=== PATIENT | female | born 1940 | race Caucasian/White ===

== ENCOUNTER 2016-04-26 08:29 | Day surgery (SDC) | payer MEDICARE, BC ==
[2016-04-21 12:08] VITALS: BMI 24.3
--- NOTE | 2016-04-25 12:18 | HP ---
DATE OF ADMISSION: 04/26/2016 Laura Hogan is a 76-year-old patient seen with left shoulder adhesive capsulitis after previously having undergone left shoulder arthroscopy. We discussed options. She elected to proceed with manipulation under anesthesia and steroid injection of left shoulder. Consent was obtained. Her past medical history is noncontributory. Past surgical history is left shoulder arthroscopy, cholecystectomy. Daily medication is Xanax as needed. Allergy is PENICILLIN. SOCIAL HISTORY: She smokes 1 pack of cigarettes daily. Physical evaluation of the left shoulder: Flexion is 70 degrees, abduction is 50 degrees, external rotation is 20 degrees with some weakness. Previous arthroscopic portal sites are well healed. Her distal neurovascular exam is intact. Left shoulder radiographs revealed a stable conversion to a flat anterior acromion and stable AC joint resection arthroplasty. IMPRESSION: 1. Left shoulder adhesive capsulitis. 2. History of left shoulder arthroscopic rotator cuff repair. PLAN: Left shoulder manipulation under anesthesia with steroid injection.
[~2016-04-26 08:29] MED LIST: CLINDAMYCIN 900 MG in DEXTROSE 5% IN WATER 50 ML IVPB ONE; HYDROmorphone 1 MG/ML 1 ML SYRINGE IVP PRN; LACTATED RINGERS 1,000 ML IV SCH; MIDAZOLAM 2 MG/2 ML VIAL IV PRN
[2016-04-26] MEDS ORDERED: LIDOCAINE 1% 20 ML VIAL (10MG/ML) FOR IV START INTRADERMA ONE (09:11)
[2016-04-26] MEDS ORDERED: KETOROLAC 30 MG/ML 1 ML VIAL ONE (09:58)
[2016-04-26] MEDS ORDERED: fentaNYL (PF) 50 MCG/ML 2 ML AMP ONE (09:58)
[2016-04-26] MEDS ORDERED: MIDAZOLAM 2 MG/2 ML VIAL ONE (09:58)
[2016-04-26] MEDS ORDERED: PROPOFOL 10 MG/ML 20 ML VIAL IV ONE (09:58)
[2016-04-26] MEDS ORDERED: methylPREDNISolone ACETATE 80 MG/ML 1 ML VIAL INTRAARTIC ONE (10:04)
[2016-04-26] MEDS ORDERED: BUPIVACAINE (PF) 0.25% 30 ML VIAL INTRAARTIC ONE (10:04)
--- NOTE | 2016-04-26 10:12 | P.OP ---
Date of Procedure: 04/26/16 Preoperative Diagnosis: Left shoulder adhesive capsulitis Postoperative Diagnosis: Left shoulder adhesive capsulitis Procedure(s) Performed: Manipulation under anesthesia left shoulder with steroid injection Anesthesia: MAC Surgeon: Aníbal Crook Estimated Blood Loss (ml): 0 Pathology: none sent Condition: stable Disposition: PACU Indications for Procedure: 76-year-old patient seen with left shoulder adhesive capsulitis after having previously undergone arthroscopic rotator cuff repair. I discussed treatment options and she elected to proceed with manipulation under anesthesia left shoulder with steroid injection. Description of Procedure: The patient was taken to a monitored area. The patient underwent IV sedation by the department of anesthesia. Once sufficient anesthesia was noted a manipulation was performed of the left shoulder. I achieved near full range of motion. The anterior aspect of the left shoulder was then prepped and draped in the normal sterile orthopedic fashion. A solution 1 mL Depo-Medrol and 3 mL quarter percent Marcaine were injected into the glenohumeral joint under sterile technique. The shoulder was again taken through range of motion. A sterile Band-Aid was applied. The patient was awakened having tolerated the procedure well.
[2016-04-26 10:18] VITALS: TEMP 97
[2016-04-26 11:02] VITALS: RESP 18
[2016-04-26 11:37] VITALS: BP 115/64; PULSE 70
== END 2016-04-26 11:42 | disposition home or self-care (01) ==
LOC: OR 08:29
PROVIDERS: ATTEND Orthopaedic Surgery
DX: M75.02 Adhesive capsulitis of left shoulder (principal); F41.9 Anxiety disorder, unspecified; Z79.899 Other long term (current) drug therapy; Z88.0 Allergy status to penicillin; F17.210 Nicotine dependence, cigarettes, uncomplicated
CPT/HCPCS: 23700; 20610; J2250; J1040; J3010; J1885; J2704

== ENCOUNTER → 2017-11-17 | Outpatient (CLI) | payer MEDICARE, BC ==
--- NOTE | 2017-11-17 07:17 | XR ---
EXAMINATION TYPE: XR chest 2V DATE OF EXAM: 11/17/2017 COMPARISON: NONE HISTORY: Left-sided chest and scapular pain. TECHNIQUE: Frontal and lateral views of the chest are obtained. FINDINGS: There is no focal air space opacity, pleural effusion, or pneumothorax seen. The cardiac silhouette size is within normal limits. The osseous structures are intact. Cholecystectomy clips a re noted on lateral view. IMPRESSION: No acute cardiopulmonary process.
--- NOTE | 2017-11-17 07:18 | XR ---
EXAMINATION TYPE: XR thoracic spine complete DATE OF EXAM: 11/17/2017 CLINICAL HISTORY: Mid back and posterior scapular pain TECHNIQUE: Frontal, lateral, and swimmer's view of thoracic spine are obtained. COMPARISON: None. FINDINGS: Thoracic spine show levoconvex scoliotic curvature centered in the upper thoracic spine wit hout evidence of acute fracture or dislocation. Vertebral body heights and disc space heights are pr eserved. Visualized ribs are unremarkable bilaterally. IMPRESSION: No acute fracture or dislocation is seen in the thoracic spine. Slight scoliotic curvatu re present.
== END ==
LOC: RADXRMAIN 06:44
PROVIDERS: ATTEND Family Medicine
DX: M54.6 Pain in thoracic spine (principal)
CPT/HCPCS: 71046; 72072

== ENCOUNTER → 2018-07-24 | Outpatient (CLI) | payer MEDICARE, BC ==
[2018-07-24 23:41] LABS: Vitamin D 25 Hydroxy 9.3 ng/mL (30.0-100.0)
== END ==
LOC: LABWHC1 15:27
PROVIDERS: ATTEND Psychiatry & Neurology Neurology
DX: R25.1 Tremor, unspecified (principal); R26.9 Unspecified abnormalities of gait and mobility
CPT/HCPCS: 36415; 82306; 82607

== ENCOUNTER → 2018-07-28 | Outpatient (CLI) | payer MEDICARE, BC ==
--- NOTE | 2018-07-28 21:31 | MR ---
EXAMINATION TYPE: MR brain wo con DATE OF EXAM: 07/28/2018 COMPARISON: None HISTORY: Tremors CONTRAST: Performed utilizing 0 mL intravenous Gadavist gadolinium contrast. TECHNIQUE: Multiplanar, multiecho imaging on a 3.0 Concha magnet is performed through the brain. Stud y is performed within 24 hours of arrival to the hospital. The craniovertebral junction is normal. The pituitary is normal. Diffusion-weighted imaging is performed. No abnormal hyperintensity is present to suggest an acute i ntracranial infarct or acute ischemic change. There are multiple scattered punctate white matter changes through the periventricular and subcortica l white matter. Small amount may be within the brainstem near the right cerebellar peduncle. Findings are nonspecific but can be related to microvascular ischemic changes. Differential diagnosis would i nclude vasculitis multiple sclerosis Lyme disease among other etiologies. Ventricles and sulci are mildly prominent for the patient age. IMPRESSIONS: 1. Multiple bilateral scattered subcortical and deep white matter changes
== END | disposition home or self-care (01) ==
LOC: RADMRIMAIN 19:14
PROVIDERS: ATTEND Psychiatry & Neurology Neurology
DX: R90.89 Other abnormal findings on diagnostic imaging of central nervous system (principal); G20 Parkinson's disease; R26.9 Unspecified abnormalities of gait and mobility
CPT/HCPCS: 70551

== ENCOUNTER → 2018-11-20 | Outpatient (CLI) | payer MEDICARE, BC | END | disposition home or self-care (01) | LOC: LABWHC1 16:01 | PROVIDERS: ATTEND Psychiatry & Neurology Neurology | DX: E55.9 Vitamin D deficiency, unspecified (principal) | CPT/HCPCS: 36415; 82306 ==

== ENCOUNTER → 2019-11-22 | Outpatient (CLI) | payer MEDICARE, BC | END | disposition home or self-care (01) | LOC: LABWHC1 08:15 | PROVIDERS: ATTEND Psychiatry & Neurology Neurology | DX: G40.909 Epilepsy, unspecified, not intractable, without status epilepticus (principal) | CPT/HCPCS: 36415; 80177 ==

== ENCOUNTER → 2019-11-30 | Outpatient (CLI) | payer MEDICARE, BC ==
[2019-11-30 10:25] LABS: HCT 41.8 % (34.0-46.0); HGB 14.1 gm/dL (11.4-16.0); MCH 32.3 pg (25.0-35.0); MCHC 33.6 g/dL (31.0-37.0); Platelet Count 146 k/uL (150-450); RBC 4.36 m/uL (3.80-5.40); RDW 12.6 % (11.5-15.5); WBC 8.4 k/uL (3.8-10.6)
== END | disposition home or self-care (01) ==
LOC: LABPAT 09:16
PROVIDERS: ATTEND Internal Medicine Clinical Cardiac Electrophysiology
DX: Z01.818 Encounter for other preprocedural examination (principal); R55 Syncope and collapse
CPT/HCPCS: 36415; 82565; 83735; 84520; 85027

== ENCOUNTER 2019-12-03 08:25 | Day surgery (SDC) | payer MEDICARE, BC ==
[2019-11-30 11:18] VITALS: BMI 20.9
[~2019-12-03 08:25] MED LIST changes: -CLINDAMYCIN 900 MG in DEXTROSE 5% IN WATER 50 ML IVPB ONE; -HYDROmorphone 1 MG/ML 1 ML SYRINGE IVP PRN; -LACTATED RINGERS 1,000 ML IV SCH; -MIDAZOLAM 2 MG/2 ML VIAL IV PRN; +SODIUM CHLORIDE 0.9% 1,000 ML IV SCH
[2019-12-03 09:39] VITALS: BP 141/62; PULSE 72; RESP 16; TEMP 98.1
--- NOTE | 2019-12-03 17:11 | P.PCN ---
Preoperative Diagnosis: Diagnosis Syncope, recurrent Twelve-lead ECG shows baseline artifact. Patient has Parkinson's and is very shaky no daily prolongation. No delta waves narrow QRS occasional PVCs Tilt table test per protocol Baseline heart rate 69 beats a minute Baseline blood pressure 141/71 mmHg With upright tilting there was a gradual progressive drop in the patient's blood pressure. The lowest blood pressure recorded was 97/58 mmHg he did commensurate with this is a mild increase in the heart rates to the low 100s. Line patient a very difficult time standing and to was the in complaining of being very tired and fatigued When she was laid supine her blood pressure improved to 139/60 mmHg and a heart rate decreased to 84 mmHg Impression No definite ECG abnormalities noted no conduction system abnormalities noted Orthostatic hypotension syndrome/mild dysautonomia
== END 2019-12-03 11:07 | disposition home or self-care (01) ==
LOC: CATHEP 08:25
PROVIDERS: ATTEND Internal Medicine Clinical Cardiac Electrophysiology
DX: I95.1 Orthostatic hypotension (principal); G20 Parkinson's disease; R06.00 Dyspnea, unspecified; I77.89 Other specified disorders of arteries and arterioles; R60.0 Localized edema; I10 Essential (primary) hypertension; F17.210 Nicotine dependence, cigarettes, uncomplicated; Z88.0 Allergy status to penicillin; Z79.899 Other long term (current) drug therapy; Z79.82 Long term (current) use of aspirin; Z98.890 Other specified postprocedural states; Z87.39 Personal history of other diseases of the musculoskeletal system and connective tissue
CPT/HCPCS: 93660

== ENCOUNTER 2020-01-28 14:16 | Emergency (ER) | payer MEDICARE, BC ==
[2020-01-28 14:25] VITALS: RESP 18; TEMP 97.7
[2020-01-28] MEDS ORDERED: SODIUM CHLORIDE 0.9% 500 ML 500 ML IV STA (15:00)
[2020-01-28 15:47] LABS: Basophils # (A) 0.1 k/uL (0-0.2); Basophils % (A) 1 %; Eosinophils # (A) 0.3 k/uL (0-0.7); Eosinophils % (A) 4 %; HCT 38.8 % (34.0-46.0); Lymphocytes # (A) 1.7 k/uL (1.0-4.8); Lymphocytes % (A) 21 %; MCH 32.2 pg (25.0-35.0); MCHC 33.6 g/dL (31.0-37.0); MCV 95.9 fL (80.0-100.0); Mean Platelet Volume 9.1; Monocytes # (A) 0.4 k/uL (0-1.0); Monocytes % (A) 5 %; Neutrophils # (A) 5.5 k/uL (1.3-7.7); Neutrophils % (A) 68 %; Platelet Count 147 k/uL (150-450); RBC 4.04 m/uL (3.80-5.40); RDW 12.9 % (11.5-15.5); WBC 8.1 k/uL (3.8-10.6)
--- NOTE | 2020-01-28 15:51 | ED ---
Weakness HPI - General Chief complaint: Weakness Stated complaint: Weakness Time Seen by Provider: 01/28/20 14:51 Source: patient, family Mode of arrival: wheelchair Limitations: no limitations - History of Present Illness Initial comments: Patient is a 79-year-old female, history of Parkinson's disease, presenting to emergency Department with complaints of weakness, multiple falls for the past 2 weeks. She states she was evaluated by cardiology about 2 weeks ago, including a tilt table test, EKG, echo which all showed no abnormal findings. She has also had low blood pressure, patient was started on 10 mg of midodrine, TID. I did speak with the patient's daughter who states that patient does live by herself, however they have somebody at the house all the time because patient is becoming weaker, not able to stand up by herself or sit on the toilet without assistance. She tends to sleep a lot during the day, does not eat a whole lot. Patient states she has been trying to drink some more water. Daughter states she had a low-grade temperature yesterday but no other fevers. There has been no vomiting, no diarrhea. She has no urinary complaints, she's been having regular bowel movements. Patient denies any chest pain, shortness of breath, cough. She denies any abdominal pain. She states she has had falls in the past week or 2 where she has hit her head, there has been no loss of consciousness. Patient is not on blood thinners. Patient has no further complaints at this time. Upon arrival to the ER, her vital signs are stable. - Related Data Home Medications Medication Instructions Recorded Confirmed Aspirin [Adult Low Dose Aspirin EC] 81 mg PO DAILY 11/30/19 01/28/20 Carbidopa-Levodopa ER 50-200Mg 1 tab PO TID@0800,1600,2300 11/30/19 01/28/20 [Sinemet ER 50-200] amantadine HCL [Amantadine] 100 mg PO BID@799,199911/30/19 01/28/20 levETIRAcetam [Keppra] 500 mg PO BID@799,199911/30/19 01/28/20 Cholecalciferol (Vitamin D3) 250 mcg PO DAILY 01/28/20 01/28/20 [Vitamin D3] Midodrine HCl [ProAmatine] 10 mg PO TID@0800,1600,2300 01/28/20 01/28/20 Previous Rx's Medication Instructions Recorded Cephalexin [Keflex] 500 mg PO BID 5 Days #10 cap 01/28/20 Allergies Allergy/AdvReac Type Severity Reaction Status Date / Time Penicillins Allergy Rash/Hives Verified 01/28/20 17:50 Review of Systems ROS Statement: Those systems with pertinent positive or pertinent negative responses have been documented in the HPI. ROS Other: All systems not noted in ROS Statement are negative. 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 Past Anesthesia/Blood Transfusion Reactions: No Reported Reaction Additional Past Anesthesia/Blood Transfusion Reaction / Comment(s): no hx blood transfusion Past Psychological History: Anxiety Smoking Status: Former smoker Past Alcohol Use History: None Reported Past Drug Use History: None Reported - Past Family History Brother(s) Family Medical History: Cancer Sister(s) Family Medical History: Cancer Daughter(s) Family Medical History: Cancer Mother Family Medical History: No Reported History Father Family Medical History: Myocardial Infarction (PA) General Exam - General Exam Comments Initial Comments: GENERAL: Patient is well-developed and well-nourished. Patient is nontoxic and in no acute distress. HEAD: Atraumatic, normocephalic. EYES: Pupils equal round and reactive to light, extraocular movements intact, sclera anicteric, conjunctiva are normal. Eyelids were unremarkable. ENT: TMs normal, nares patent, oropharynx clear without exudates. Moist mucous membranes. NECK: Normal range of motion, supple without lymphadenopathy or JVD. LUNGS: Unlabored respirations. Breath sounds clear to auscultation bilaterally and equal. No wheezes rales or rhonchi. HEART: Regular rate and rhythm without murmurs, rubs or gallops. ABDOMEN: Soft, nontender, normoactive bowel sounds. No guarding, no rebound. No masses appreciated. : Deferred MUSCULOSKELETAL: Normal extremities with adequate strength and normal range of motion, no pitting or edema. No clubbing or cyanosis. NEUROLOGICAL: Patient is alert and oriented x 3. Motor and sensory are also intact. Cranial nerves II through XII grossly intact. Symmetrical smile. Normal speech, normal gait. History of Parkinson's PSYCH: Normal mood, normal affect. SKIN: Warm, Dry, normal turgor, no rashes or lesions noted. Limitations: no limitations Course Vital Signs 01/28/20 01/28/20 01/28/20 14:20 14:31 15:00 Temperature 97.7 F Pulse Rate 91 Respiratory 18 Rate Blood Pressure 123/78 155/114 O2 Sat by Pulse 94 L 93 L 94 L Oximetry 01/28/20 01/28/20 01/28/20 15:30 16:00 16:30 Temperature Pulse Rate 85 88 Respiratory 18 Rate Blood Pressure 139/73 129/43 127/89 O2 Sat by Pulse 95 96 Oximetry 01/28/20 01/28/20 01/28/20 17:00 17:30 18:00 Temperature Pulse Rate 71 Respiratory 18 Rate Blood Pressure 138/77 125/101 152/85 O2 Sat by Pulse 95 Oximetry EKG Findings - EKG Comments: EKG Findings:: Patient has history of Parkinson's so EKG is hard to read, appears normal sinus rhythm, no signs of acute ischemia, ventricular rate 66, OH 162, QTC 424. Medical Decision Making - Medical Decision Making Patient is a 79-year-old female with history of Parkinson's presenting for weakness, multiple falls in the past 2 weeks. She had a recent full cardiac workup with no acute findings. She was recently started on medication for hypotension. Her vital signs are stable here. Her exam shows no acute process at this time. Labs show a normal white count, troponin is normal, BNP is normal, lactic acid is 1.7. Urine does show 57 wbc's, large amount leukocyte Estrace. Covid is not detected. Chest x-ray and CT of the brain also show no acute process. Patient was given some fluids and a dose of Rocephin for the UTI. I did discuss these findings with the patient I did recommend admission for dehydration and UTI however patient refused. We also did speak to her PCP, Dr. Rudd who is okay with patient going home and will follow-up in the next 1-2 days. Patient states she will follow-up. She is stable for discharge. I will continue her on Keflex for the UTI. I also spoke with patient's a daughter who is okay with this plan. Case discussed with Dr. Gonzalez. - Lab Data Result diagrams: 01/28/20 15:23 01/28/20 15: Lab Results 01/28/20 01/28/20 01/28/20 Range/Units 15:23 15: 15:23 WBC 8.1 (3.8-10.6) k/uL RBC 4.04 (3.80-5.40) m/uL Hgb 13.0 (11.4-16.0) gm/dL Hct 38.8 (34.0-46.0) % MCV 95.9 (80.0-100.0) fL MCH 32.2 (25.0-35.0) pg MCHC 33.6 (31.0-37.0) g/dL RDW 12.9 (11.5-15.5) % Plt Count 147 L (150-450) k/uL MPV 9.1 Neutrophils % 68 % Lymphocytes % 21 % Monocytes % 5 % Eosinophils % 4 % Basophils % 1 % Neutrophils # 5.5 (1.3-7.7) k/uL Lymphocytes # 1.7 (1.0-4.8) k/uL Monocytes # 0.4 (0-1.0) k/uL Eosinophils # 0.3 (0-0.7) k/uL Basophils # 0.1 (0-0.2) k/uL PT 9.8 (9.0-12.0) sec INR 0.9 (<1.2) APTT 21.7 L (22.0-30.0) sec Sodium (137-145) mmol/L Potassium (3.5-5.1) mmol/L Chloride (98-107) mmol/L Carbon Dioxide (22-30) mmol/L Anion Gap mmol/L BUN (7-17) mg/dL Creatinine (0.52-1.04) mg/dL Est GFR (CKD-EPI)AfAm (>60 ml/min/1.73 sqM) Est GFR (CKD-EPI)NonAf (>60 ml/min/1.73 sqM) Glucose (74-99) mg/dL Plasma Lactic Acid Nikolay (0.7-2.0) mmol/L Calcium (8.4-10.2) mg/dL Magnesium (1.6-2.3) mg/dL Total Bilirubin (0.2-1.3) mg/dL AST (14-36) U/L ALT (4-34) U/L Alkaline Phosphatase (38-126) U/L Troponin I (0.000-0.034) ng/mL NT-Pro-B Natriuret Pep pg/mL Total Protein (6.3-8.2) g/dL Albumin (3.5-5.0) g/dL Urine Color Yellow Urine Appearance Clear (Clear) Urine pH 6.0 (5.0-8.0) Ur Specific [place] 1.015 (1.001-1.035) Urine Protein Trace H (Negative) Urine Glucose (UA) Negative (Negative) Urine Ketones Negative (Negative) Urine Blood Negative (Negative) Urine Nitrite Negative (Negative) Urine Bilirubin Negative (Negative) Urine Urobilinogen <2.0 (<2.0) mg/dL Ur Leukocyte Esterase Large H (Negative) Urine RBC 2 (0-5) /hpf Urine WBC 57 H (0-5) /hpf Ur Squamous Epith Cells 1 (0-4) /hpf Urine Mucus Few H (None) /hpf Coronavirus (PCR) (Not Detectd) 01/28/20 01/28/20 01/28/20 Range/Units 15:23 15:23 15:23 WBC (3.8-10.6) k/uL RBC (3.80-5.40) m/uL Hgb (11.4-16.0) gm/dL Hct (34.0-46.0) % MCV (80.0-100.0) fL MCH (25.0-35.0) pg MCHC (31.0-37.0) g/dL RDW (11.5-15.5) % Plt Count (150-450) k/uL MPV Neutrophils % % Lymphocytes % % Monocytes % % Eosinophils % % Basophils % % Neutrophils # (1.3-7.7) k/uL Lymphocytes # (1.0-4.8) k/uL Monocytes # (0-1.0) k/uL Eosinophils # (0-0.7) k/uL Basophils # (0-0.2) k/uL PT (9.0-12.0) sec INR (<1.2) APTT (22.0-30.0) sec Sodium 142 (137-145) mmol/L Potassium 3.9 (3.5-5.1) mmol/L Chloride 105 (98-107) mmol/L Carbon Dioxide 27 (22-30) mmol/L Anion Gap 10 mmol/L BUN 21 H (7-17) mg/dL Creatinine 0.81 (0.52-1.04) mg/dL Est GFR (CKD-EPI)AfAm 81 (>60 ml/min/1.73 sqM) Est GFR (CKD-EPI)NonAf 70 (>60 ml/min/1.73 sqM) Glucose 94 (74-99) mg/dL Plasma Lactic Acid Nikolay 1.7 (0.7-2.0) mmol/L Calcium 9.5 (8.4-10.2) mg/dL Magnesium 2.0 (1.6-2.3) mg/dL Total Bilirubin 0.6 (0.2-1.3) mg/dL AST 16 (14-36) U/L ALT 7 (4-34) U/L Alkaline Phosphatase 88 (38-126) U/L Troponin I <0.012 (0.000-0.034) ng/mL NT-Pro-B Natriuret Pep pg/mL Total Protein 7.0 (6.3-8.2) g/dL Albumin 4.3 (3.5-5.0) g/dL Urine Color Urine Appearance (Clear) Urine pH (5.0-8.0) Ur Specific [place] (1.001-1.035) Urine Protein (Negative) Urine Glucose (UA) (Negative) Urine Ketones (Negative) Urine Blood (Negative) Urine Nitrite (Negative) Urine Bilirubin (Negative) Urine Urobilinogen (<2.0) mg/dL Ur Leukocyte Esterase (Negative) Urine RBC (0-5) /hpf Urine WBC (0-5) /hpf Ur Squamous Epith Cells (0-4) /hpf Urine Mucus (None) /hpf Coronavirus (PCR) (Not Detectd) 01/28/20 01/28/20 Range/Units 15:23 15:23 WBC (3.8-10.6) k/uL RBC (3.80-5.40) m/uL Hgb (11.4-16.0) gm/dL Hct (34.0-46.0) % MCV (80.0-100.0) fL MCH (25.0-35.0) pg MCHC (31.0-37.0) g/dL RDW (11.5-15.5) % Plt Count (150-450) k/uL MPV Neutrophils % % Lymphocytes % % Monocytes % % Eosinophils % % Basophils % % Neutrophils # (1.3-7.7) k/uL Lymphocytes # (1.0-4.8) k/uL Monocytes # (0-1.0) k/uL Eosinophils # (0-0.7) k/uL Basophils # (0-0.2) k/uL PT (9.0-12.0) sec INR (<1.2) APTT (22.0-30.0) sec Sodium (137-145) mmol/L Potassium (3.5-5.1) mmol/L Chloride (98-107) mmol/L Carbon Dioxide (22-30) mmol/L Anion Gap mmol/L BUN (7-17) mg/dL Creatinine (0.52-1.04) mg/dL Est GFR (CKD-EPI)AfAm (>60 ml/min/1.73 sqM) Est GFR (CKD-EPI)NonAf (>60 ml/min/1.73 sqM) Glucose (74-99) mg/dL Plasma Lactic Acid Nikolay (0.7-2.0) mmol/L Calcium (8.4-10.2) mg/dL Magnesium (1.6-2.3) mg/dL Total Bilirubin (0.2-1.3) mg/dL AST (14-36) U/L ALT (4-34) U/L Alkaline Phosphatase (38-126) U/L Troponin I (0.000-0.034) ng/mL NT-Pro-B Natriuret Pep 486 pg/mL Total Protein (6.3-8.2) g/dL Albumin (3.5-5.0) g/dL Urine Color Urine Appearance (Clear) Urine pH (5.0-8.0) Ur Specific [place] (1.001-1.035) Urine Protein (Negative) Urine Glucose (UA) (Negative) Urine Ketones (Negative) Urine Blood (Negative) Urine Nitrite (Negative) Urine Bilirubin (Negative) Urine Urobilinogen (<2.0) mg/dL Ur Leukocyte Esterase (Negative) Urine RBC (0-5) /hpf Urine WBC (0-5) /hpf Ur Squamous Epith Cells (0-4) /hpf Urine Mucus (None) /hpf Coronavirus (PCR) Not Detected (Not Detectd) Disposition Clinical Impression: UTI (urinary tract infection), Weakness Disposition: HOME SELF-CARE Condition: Stable Instructions (If sedation given, give patient instructions): Urinary Tract Infection in Women (ED) Additional Instructions: Please return to the Emergency Department if symptoms worsen or any other concerns. Complete antibiotic as prescribed. Follow-up with Dr. Rudd in 1-2 days as discussed Prescriptions: Cephalexin [Keflex] 500 mg PO BID 5 Days #10 cap Is patient prescribed a controlled substance at d/c from ED?: No Referrals: Rick Rudd DO [Primary Care Provider] - 1-2 days
[2020-01-28 15:55] LABS: Albumin 4.3 g/dL (3.5-5.0); Calcium 9.5 mg/dL (8.4-10.2); Potassium 3.9 mmol/L (3.5-5.1); Total Bilirubin 0.6 mg/dL (0.2-1.3)
--- NOTE | 2020-01-28 16:03 | XR ---
EXAMINATION TYPE: XR chest 2V DATE OF EXAM: 01/28/2020 COMPARISON: 11/17/2017 INDICATION: Weakness. Falls TECHNIQUE: Frontal and lateral views of the chest are obtained. FINDINGS: The heart size is normal. The pulmonary vasculature is normal. The lungs are clear. IMPRESSION: 1. No acute pulmonary process.
[2020-01-28 16:10] LABS: INR 0.9 (<1.2); Prothrombin Time 9.8 sec (9.0-12.0)
[2020-01-28 16:15] LABS: Partial Thromboplastin Time 21.7 sec (22.0-30.0)
--- NOTE | 2020-01-28 16:18 | CT ---
EXAMINATION TYPE: CT brain wo con DATE OF EXAM: 01/28/2020 COMPARISON: MRI 07/28/2018 HISTORY: 79-year-old female weak dizziness, Parkinson's TECHNIQUE: Examination was done in axial plane without intravenous contrast. Coronal and sagittal r econstructions performed. CT DLP: 1098.4 mGycm Automated exposure control for dose reduction was used. FINDINGS: There is no evidence of acute intracranial hemorrhage, acute ischemic changes, mass, mass-effect, or extra-axial fluid collection. There is no effacement of cerebral sulci or basal subarachnoid cister ns. There is no hydrocephalus. There is no midline shift. Jordan-white matter distinction is preserv ed. Mild to moderate patchy white matter hypodensities in both cerebral hemispheres. Paranasal sinuses and mastoid air cells are well pneumatized. Orbits and globes are intact. IMPRESSION: No acute intracranial abnormality seen. Mild to moderate patchy burden of chronic small vessel ischem ic disease.
[2020-01-28 17:02] LABS: Appearance,Urine Clear (Clear); Bilirubin,Urine Negative (Negative); Blood,Urine Negative (Negative); Color,Urine Yellow; Glucose,Urine (UA) Negative (Negative); Ketones,Urine Negative (Negative); Leukocyte Esterase,Urine Large (Negative); Mucus,Urine Few /hpf; Nitrite,Urine Negative (Negative); Protein,Urine Trace (Negative); RBC,Urine 2 /hpf (0-5); Specific Gravity,Urine 1.015 (1.001-1.035); Squamous Epithelial Cell,Urine 1 /hpf (0-4); Urobilinogen,Urine <2.0 mg/dL (<2.0); WBC,Urine 57 /hpf (0-5)
[2020-01-28] MEDS ORDERED: cefTRIAXone IN SWFI 1,000 MG/10 ML SYRINGE IVP STA (17:52)
[2020-01-28 18:02] VITALS: BP 152/85; PULSE 71
== END 2020-01-28 18:26 | disposition home or self-care (01) ==
LOC: EC 14:16
DX: N39.0 Urinary tract infection, site not specified (principal); I95.9 Hypotension, unspecified; E86.0 Dehydration; G20 Parkinson's disease; R29.6 Repeated falls; Z79.899 Other long term (current) drug therapy; Z79.82 Long term (current) use of aspirin; Z88.0 Allergy status to penicillin; Z87.891 Personal history of nicotine dependence; Z20.828 Contact with and (suspected) exposure to other viral communicable diseases
CPT/HCPCS: 36415; 93005; 83880; 80053; 83605; 83735; 84484; 85025; 85610; 85730; 81001; 87086; 87635; 71046; 70450; 99285; 96374; 96361; J0696

== ENCOUNTER 2020-02-09 11:35 | Emergency (ER) | payer MEDICARE, BC ==
[2020-02-09 11:44] VITALS: RESP 16
[2020-02-09] MEDS ORDERED: SODIUM CHLORIDE 0.9% 500 ML 500 ML IV STA (12:10)
--- NOTE | 2020-02-09 12:38 | ED ---
General Adult HPI - General Chief complaint: Weakness Stated complaint: general weakness Time Seen by Provider: 02/09/20 12:08 Source: patient, RN notes reviewed, old records reviewed Mode of arrival: EMS Limitations: no limitations - History of Present Illness Initial comments: 79-year-old female presenting for increased generalized weakness. Patient recently treated for urinary tract infection, completed a 5 day course of antibiotics. She's had increased weakness despite treatment. She's had poor oral intake. No vomiting. She has had diarrhea for the past one or 2 days. She denies chest pain or dyspnea. Denies URI symptoms. Denies fever. Denies abdominal pain. Denies focal numbness or weakness. - Related Data Home Medications Medication Instructions Recorded Confirmed Aspirin [Adult Low Dose Aspirin EC] 81 mg PO DAILY 11/30/19 01/28/20 Carbidopa-Levodopa ER 50-200Mg 1 tab PO TID@0800,1600,2300 11/30/19 01/28/20 [Sinemet ER 50-200] amantadine HCL [Amantadine] 100 mg PO BID@0800,199911/30/19 01/28/20 levETIRAcetam [Keppra] 500 mg PO BID@0800,199911/30/19 01/28/20 Cholecalciferol (Vitamin D3) 250 mcg PO DAILY 01/28/20 01/28/20 [Vitamin D3] Midodrine HCl [ProAmatine] 10 mg PO TID@0800,1600,2300 01/28/20 01/28/20 Previous Rx's Medication Instructions Recorded Cephalexin [Keflex] 500 mg PO BID 5 Days #10 cap 01/28/20 Allergies Allergy/AdvReac Type Severity Reaction Status Date / Time Penicillins Allergy Rash/Hives Verified 02/09/20 11:44 Review of Systems ROS Statement: Those systems with pertinent positive or pertinent negative responses have been documented in the HPI. ROS Other: All systems not noted in ROS Statement are negative. 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 Past Anesthesia/Blood Transfusion Reactions: No Reported Reaction Additional Past Anesthesia/Blood Transfusion Reaction / Comment(s): no hx blood transfusion Past Psychological History: Anxiety Smoking Status: Former smoker Past Alcohol Use History: None Reported Past Drug Use History: None Reported - Past Family History Brother(s) Family Medical History: Cancer Sister(s) Family Medical History: Cancer Daughter(s) Family Medical History: Cancer Mother Family Medical History: No Reported History Father Family Medical History: Myocardial Infarction ([place]) General Exam Limitations: no limitations General appearance: alert, in no apparent distress Head exam: Present: atraumatic, normocephalic Eye exam: Present: normal appearance, PERRL ENT exam: Present: mucous membranes dry Neck exam: Present: normal inspection. Absent: tenderness, meningismus Respiratory exam: Present: normal lung sounds bilaterally. Absent: respiratory distress, wheezes, rales Cardiovascular Exam: Present: regular rate, normal rhythm GI/Abdominal exam: Present: soft. Absent: distended, tenderness, guarding Extremities exam: Present: normal inspection, normal capillary refill. Absent: pedal edema, calf tenderness Neurological exam: Present: alert, oriented X3, CN II-XII intact, other (Resting tremor). Absent: motor sensory deficit Psychiatric exam: Present: normal affect, normal mood Skin exam: Present: warm, dry, intact. Absent: cyanosis, diaphoretic Course Vital Signs 02/09/20 11:42 Temperature 97.9 F Pulse Rate 86 Respiratory 16 Rate Blood Pressure 169/75 O2 Sat by Pulse 95 Oximetry EKG Findings - EKG Comments: EKG Findings:: EKG: Normal sinus rhythm, no ST segment elevation, artifact secondary to tremor, rate of 79, [place] interval 168, QRS duration 72, QTC 438 Medical Decision Making - Medical Decision Making 79-year-old female with generalized weakness, poor appetite. Patient overall well-appearing with stable vitals. She has normal CBC, normal CMP, negative urinalysis. Negative chest x-ray, no focal pneumonia or acute findings. Patient's given IV hydration, she is feeling better with hydration. I did offer admission for continuous IV hydration and reevaluation. Versus home with close outpatient follow-up. Patient and her family prefer outpatient follow-up at this time. They will encourage hydration, as well as increased by mouth intake. They will return the emergency department with worsening or changing symptoms. - Lab Data Result diagrams: 02/09/20 12:51 02/09/20 12:51 Lab Results 02/09/20 02/09/20 02/09/20 Range/Units 12:51 12:51 12:51 WBC 7.8 (3.8-10.6) k/uL RBC 3.96 (3.80-5.40) m/uL Hgb 12.8 (11.4-16.0) gm/dL Hct 37.3 (34.0-46.0) % MCV 94.2 (80.0-100.0) fL MCH 32.3 (25.0-35.0) pg MCHC 34.3 (31.0-37.0) g/dL RDW 12.8 (11.5-15.5) % Plt Count 161 (150-450) k/uL MPV 8.6 Neutrophils % 65 % Lymphocytes % 23 % Monocytes % 4 % Eosinophils % 5 % Basophils % 1 % Neutrophils # 5.1 (1.3-7.7) k/uL Lymphocytes # 1.8 (1.0-4.8) k/uL Monocytes # 0.3 (0-1.0) k/uL Eosinophils # 0.4 (0-0.7) k/uL Basophils # 0.1 (0-0.2) k/uL PT 9.9 (9.0-12.0) sec INR 0.9 (<1.2) APTT 22.5 (22.0-30.0) sec Sodium 140 (137-145) mmol/L Potassium 4.3 (3.5-5.1) mmol/L Chloride 104 (98-107) mmol/L Carbon Dioxide 30 (22-30) mmol/L Anion Gap 6 mmol/L BUN 21 H (7-17) mg/dL Creatinine 0.80 (0.52-1.04) mg/dL Est GFR (CKD-EPI)AfAm 82 (>60 ml/min/1.73 sqM) Est GFR (CKD-EPI)NonAf 71 (>60 ml/min/1.73 sqM) Glucose 96 (74-99) mg/dL Plasma Lactic Acid Nikolay (0.7-2.0) mmol/L Calcium 9.3 (8.4-10.2) mg/dL Total Bilirubin 0.7 (0.2-1.3) mg/dL AST 14 (14-36) U/L ALT <6 (4-34) U/L Alkaline Phosphatase 111 (38-126) U/L Total Protein 6.7 (6.3-8.2) g/dL Albumin 4.1 (3.5-5.0) g/dL Urine Color Urine Appearance (Clear) Urine pH (5.0-8.0) Ur Specific [place] (1.001-1.035) Urine Protein (Negative) Urine Glucose (UA) (Negative) Urine Ketones (Negative) Urine Blood (Negative) Urine Nitrite (Negative) Urine Bilirubin (Negative) Urine Urobilinogen (<2.0) mg/dL Ur Leukocyte Esterase (Negative) Urine RBC (0-5) /hpf Urine WBC (0-5) /hpf Ur Squamous Epith Cells (0-4) /hpf Urine Mucus (None) /hpf 02/09/20 02/09/20 Range/Units 12:51 13:27 WBC (3.8-10.6) k/uL RBC (3.80-5.40) m/uL Hgb (11.4-16.0) gm/dL Hct (34.0-46.0) % MCV (80.0-100.0) fL MCH (25.0-35.0) pg MCHC (31.0-37.0) g/dL RDW (11.5-15.5) % Plt Count (150-450) k/uL MPV Neutrophils % % Lymphocytes % % Monocytes % % Eosinophils % % Basophils % % Neutrophils # (1.3-7.7) k/uL Lymphocytes # (1.0-4.8) k/uL Monocytes # (0-1.0) k/uL Eosinophils # (0-0.7) k/uL Basophils # (0-0.2) k/uL PT (9.0-12.0) sec INR (<1.2) APTT (22.0-30.0) sec Sodium (137-145) mmol/L Potassium (3.5-5.1) mmol/L Chloride (98-107) mmol/L Carbon Dioxide (22-30) mmol/L Anion Gap mmol/L BUN (7-17) mg/dL Creatinine (0.52-1.04) mg/dL Est GFR (CKD-EPI)AfAm (>60 ml/min/1.73 sqM) Est GFR (CKD-EPI)NonAf (>60 ml/min/1.73 sqM) Glucose (74-99) mg/dL Plasma Lactic Acid Nikolay 0.8 (0.7-2.0) mmol/L Calcium (8.4-10.2) mg/dL Total Bilirubin (0.2-1.3) mg/dL AST (14-36) U/L ALT (4-34) U/L Alkaline Phosphatase (38-126) U/L Total Protein (6.3-8.2) g/dL Albumin (3.5-5.0) g/dL Urine Color Yellow Urine Appearance Clear (Clear) Urine pH 6.5 (5.0-8.0) Ur Specific [place] 1.011 (1.001-1.035) Urine Protein Negative (Negative) Urine Glucose (UA) Negative (Negative) Urine Ketones Negative (Negative) Urine Blood Negative (Negative) Urine Nitrite Negative (Negative) Urine Bilirubin Negative (Negative) Urine Urobilinogen <2.0 (<2.0) mg/dL Ur Leukocyte Esterase Moderate H (Negative) Urine RBC 1 (0-5) /hpf Urine WBC 8 H (0-5) /hpf Ur Squamous Epith Cells <1 (0-4) /hpf Urine Mucus Few H (None) /hpf Disposition Clinical Impression: Weakness, Dehydration Disposition: HOME SELF-CARE Condition: Fair Instructions (If sedation given, give patient instructions): Dehydration (ED), Weakness (ED) Is patient prescribed a controlled substance at d/c from ED?: No Referrals: Rick Rudd DO [Primary Care Provider] - 1-2 days Time of Disposition: 14:09
[2020-02-09 13:12] LABS: Basophils # (A) 0.1 k/uL (0-0.2); Basophils % (A) 1 %; Eosinophils # (A) 0.4 k/uL (0-0.7); Eosinophils % (A) 5 %; HCT 37.3 % (34.0-46.0); HGB 12.8 gm/dL (11.4-16.0); Lymphocytes # (A) 1.8 k/uL (1.0-4.8); Lymphocytes % (A) 23 %; MCH 32.3 pg (25.0-35.0); MCHC 34.3 g/dL (31.0-37.0); MCV 94.2 fL (80.0-100.0); Mean Platelet Volume 8.6; Monocytes # (A) 0.3 k/uL (0-1.0); Monocytes % (A) 4 %; Neutrophils # (A) 5.1 k/uL (1.3-7.7); Neutrophils % (A) 65 %; Platelet Count 161 k/uL (150-450); RBC 3.96 m/uL (3.80-5.40); RDW 12.8 % (11.5-15.5); WBC 7.8 k/uL (3.8-10.6)
[2020-02-09 13:20] LABS: INR 0.9 (<1.2); Partial Thromboplastin Time 22.5 sec (22.0-30.0); Prothrombin Time 9.9 sec (9.0-12.0)
[2020-02-09 13:21] LABS: ALT <6 U/L (4-34); AST 14 U/L (14-36); African American GFR (CKD) 82 (>60 ml/min/1.73 sqM); Albumin 4.1 g/dL (3.5-5.0); Alkaline Phosphatase 111 U/L (38-126); Anion Gap 6 mmol/L; Blood Urea Nitrogen 21 mg/dL (7-17); Calcium 9.3 mg/dL (8.4-10.2); Carbon Dioxide 30 mmol/L (22-30); Chloride 104 mmol/L (98-107); Glucose 96 mg/dL (74-99); Non-African American GFR(CKD) 71 (>60 ml/min/1.73 sqM); Potassium 4.3 mmol/L (3.5-5.1); Sodium 140 mmol/L (137-145); Total Bilirubin 0.7 mg/dL (0.2-1.3); Total Protein 6.7 g/dL (6.3-8.2)
--- NOTE | 2020-02-09 13:22 | XR ---
EXAMINATION TYPE: XR chest 2V DATE OF EXAM: 02/09/2020 COMPARISON: 01/28/2020 HISTORY: 79-year-old female with weakness TECHNIQUE: AP and lateral views FINDINGS: The cardiomediastinal silhouette, aorta, and pulmonary vasculature are within normal limits. Lungs an d pleural spaces are clear. IMPRESSION: No acute cardiopulmonary process.
[2020-02-09 13:37] LABS: Appearance,Urine Clear (Clear); Bilirubin,Urine Negative (Negative); Blood,Urine Negative (Negative); Color,Urine Yellow; Glucose,Urine (UA) Negative (Negative); Ketones,Urine Negative (Negative); Leukocyte Esterase,Urine Moderate (Negative); Mucus,Urine Few /hpf; Nitrite,Urine Negative (Negative); PH, Urine 6.5 (5.0-8.0); Protein,Urine Negative (Negative); RBC,Urine 1 /hpf (0-5); Specific Gravity,Urine 1.011 (1.001-1.035); Squamous Epithelial Cell,Urine <1 /hpf (0-4); Urobilinogen,Urine <2.0 mg/dL (<2.0); WBC,Urine 8 /hpf (0-5)
[2020-02-09] MEDS ORDERED: SODIUM CHLORIDE 0.9% 500 ML 500 ML IV ONE (14:06)
[2020-02-09 14:42] VITALS: BP 128/74; PULSE 78; TEMP 98
== END 2020-02-09 14:41 | disposition home or self-care (01) ==
LOC: EC 11:35
DX: E86.0 Dehydration (principal); R53.1 Weakness; G20 Parkinson's disease; Z79.82 Long term (current) use of aspirin; Z79.899 Other long term (current) drug therapy; Z88.0 Allergy status to penicillin; Z87.891 Personal history of nicotine dependence
CPT/HCPCS: 36415; 71046; 80053; 81001; 83605; 85025; 85610; 85730; 87040; 93005; 96360; 96361; 99285

== ENCOUNTER 2020-03-22 14:48 | Observation (INO) | payer MEDICARE, BC ==
[2020-03-22] MEDS ORDERED: SODIUM CHLORIDE 0.9% 1,000 ML IV STA (15:19)
--- NOTE | 2020-03-22 15:53 | ED ---
Weakness HPI - General Chief complaint: Weakness Stated complaint: Weakness Time Seen by Provider: 03/22/20 15:00 Source: patient Mode of arrival: EMS Limitations: no limitations - History of Present Illness Initial comments: Patient is a 80-year-old female with past medical history of Parkinson's disease who presents to the emergency department accompanied by her daughter. Daughter states the patient has been generally weak for the past one week. This is her third time in the emergency department since the beginning of January. Daughter states that the episode is similar to previous. She has had poor oral intake. She had been discussing the patient's care with Dr. Paula and Dr. Rudd. She was instructed that if the patient's did not improved by noon today that she had a going to the emergency department for IV hydration and admission. The patient's does have 24-hour care. Previously the family had refused admission stating that they could take care of the patient on her own however daughter states that it is too difficult right now to care for her. She has been unable to get up and go to the bathroom on her own. She has not had any recent falls. The patient denies any chest pain or shortness of breath. No fevers or chills. Denies abdominal pain. Does admit to malodorous urine. No black or tarry stools. No other alleviating, precipitating or modifying factors - Related Data Home Medications Medication Instructions Recorded Confirmed Aspirin [Adult Low Dose Aspirin EC] 81 mg PO HS@2300 11/30/19 03/23/20 Cholecalciferol (Vitamin D3) 250 mcg PO DAILY@1600 01/28/20 03/23/20 [Vitamin D3 (5000 Iu)] Previous Rx's Medication Instructions Recorded Carbidopa-Levodopa 25-100 mg 1 each PO TID #90 tab 03/25/20 [Sinemet 25-100 mg] Cholecalciferol [Vitamin D3 (10 400 unit PO DAILY@1600 tab 03/25/20 Mcg = 400 Iu)] Midodrine HCl [ProAmatine] 5 mg PO TID@0800,1600,2300 #0 03/25/20 Topiramate [Topamax] 50 mg PO BID #120 tab 03/25/20 Allergies Allergy/AdvReac Type Severity Reaction Status Date / Time Penicillins Allergy Rash/Hives Verified 03/22/20 16:51 Review of Systems ROS Statement: Those systems with pertinent positive or pertinent negative responses have been documented in the HPI. ROS Other: All systems not noted in ROS Statement are negative. 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 Past Anesthesia/Blood Transfusion Reactions: No Reported Reaction Additional Past Anesthesia/Blood Transfusion Reaction / Comment(s): no hx blood transfusion Past Psychological History: Anxiety Smoking Status: Former smoker Past Alcohol Use History: None Reported Past Drug Use History: None Reported - Past Family History Brother(s) Family Medical History: Cancer Sister(s) Family Medical History: Cancer Daughter(s) Family Medical History: Cancer Mother Family Medical History: No Reported History Father Family Medical History: Myocardial Infarction ([place]) General Exam Limitations: no limitations General appearance: alert, in no apparent distress, other (severe resting tremor) Head exam: Present: atraumatic, normocephalic, normal inspection Eye exam: Present: normal appearance, PERRL, EOMI. Absent: scleral icterus, conjunctival injection, periorbital swelling ENT exam: Present: normal exam, mucous membranes moist Neck exam: Present: normal inspection. Absent: tenderness, meningismus, lymphadenopathy Respiratory exam: Present: normal lung sounds bilaterally. Absent: respiratory distress, wheezes, rales, rhonchi, stridor Cardiovascular Exam: Present: regular rate, normal rhythm, normal heart sounds. Absent: systolic murmur, diastolic murmur, rubs, gallop, clicks GI/Abdominal exam: Present: soft, normal bowel sounds. Absent: distended, tenderness, guarding, rebound, rigid Extremities exam: Present: normal inspection, full ROM, normal capillary refill. Absent: tenderness, pedal edema, joint swelling, calf tenderness Back exam: Present: normal inspection Neurological exam: Present: alert, oriented X3, CN II-XII intact Psychiatric exam: Present: normal affect, normal mood Skin exam: Present: warm, dry, intact, normal color. Absent: rash Course Vital Signs 03/22/20 03/22/20 03/22/20 15:01 16:08 17:00 Temperature 98.4 F Pulse Rate 76 70 73 Respiratory 22 19 20 Rate Blood Pressure 153/74 136/65 159/78 O2 Sat by Pulse 97 97 97 Oximetry 03/22/20 17:31 Temperature 98.2 F Pulse Rate Respiratory Rate Blood Pressure O2 Sat by Pulse Oximetry EKG Findings - EKG Comments: EKG Findings:: EKG demonstrates normal sinus rhythm with a ventricular rate of 73. AK interval 176. QRS 82. QTC 434. No acute ST segment elevations or depressions Medical Decision Making - Medical Decision Making Upon arrival the patient is placed into room 4. A thorough history and physical exam was performed. Periphery is established and the patient is given 2 L bolus of normal saline. No history of heart failure. There are traces are conducted which demonstrated a platelet count of 138. Urine analysis does demo nstrate moderate leukocyte esterase with 7 white blood cells and rare bacteria. Patient will be covered with antibiotics due to report of malodorous urine. These results are discussed with the family and patient. Recommended hospitalization for which the patient did agree to. Discussed case with Dr. Garces who agreed to admit the patient. Patient remained in stable condition awaiting a bed on the floor - Lab Data Result diagrams: 03/23/20 06:15 03/23/20 06:15 Lab Results 03/22/20 03/22/20 03/22/20 Range/Units 15:43 15:43 15:43 WBC 8.6 (3.8-10.6) k/uL RBC 3.92 (3.80-5.40) m/uL Hgb 13.0 (11.4-16.0) gm/dL Hct 36.9 (34.0-46.0) % MCV 94.0 (80.0-100.0) fL MCH 33.1 (25.0-35.0) pg MCHC 35.2 (31.0-37.0) g/dL RDW 13.1 (11.5-15.5) % Plt Count 138 L (150-450) k/uL MPV 9.1 Neutrophils % 68 % Lymphocytes % 19 % Monocytes % 4 % Eosinophils % 7 % Basophils % 1 % Neutrophils # 5.9 (1.3-7.7) k/uL Lymphocytes # 1.7 (1.0-4.8) k/uL Monocytes # 0.3 (0-1.0) k/uL Eosinophils # 0.6 (0-0.7) k/uL Basophils # 0.1 (0-0.2) k/uL PT 10.2 (9.0-12.0) sec INR 0.9 (<1.2) APTT 22.8 (22.0-30.0) sec Sodium (137-145) mmol/L Potassium (3.5-5.1) mmol/L Chloride (98-107) mmol/L Carbon Dioxide (22-30) mmol/L Anion Gap mmol/L BUN (7-17) mg/dL Creatinine (0.52-1.04) mg/dL Est GFR (CKD-EPI)AfAm (>60 ml/min/1.73 sqM) Est GFR (CKD-EPI)NonAf (>60 ml/min/1.73 sqM) Glucose (74-99) mg/dL Plasma Lactic Acid Nikolay (0.7-2.0) mmol/L Calcium (8.4-10.2) mg/dL Magnesium (1.6-2.3) mg/dL Total Bilirubin (0.2-1.3) mg/dL AST (14-36) U/L ALT (4-34) U/L Alkaline Phosphatase (38-126) U/L Creatine Kinase (30-135) U/L Troponin I (0.000-0.034) ng/mL Total Protein (6.3-8.2) g/dL Albumin (3.5-5.0) g/dL TSH (0.465-4.680) mIU/L Urine Color Colorless Urine Appearance Clear (Clear) Urine pH 6.0 (5.0-8.0) Ur Specific [place] 1.003 (1.001-1.035) Urine Protein Negative (Negative) Urine Glucose (UA) Negative (Negative) Urine Ketones Negative (Negative) Urine Blood Negative (Negative) Urine Nitrite Negative (Negative) Urine Bilirubin Negative (Negative) Urine Urobilinogen <2.0 (<2.0) mg/dL Ur Leukocyte Esterase Moderate H (Negative) Urine RBC 1 (0-5) /hpf Urine WBC 7 H (0-5) /hpf Ur Squamous Epith Cells <1 (0-4) /hpf Urine Bacteria Rare H (None) /hpf 03/22/20 03/22/20 03/22/20 Range/Units 15:43 15:43 15:43 WBC (3.8-10.6) k/uL RBC (3.80-5.40) m/uL Hgb (11.4-16.0) gm/dL Hct (34.0-46.0) % MCV (80.0-100.0) fL MCH (25.0-35.0) pg MCHC (31.0-37.0) g/dL RDW (11.5-15.5) % Plt Count (150-450) k/uL MPV Neutrophils % % Lymphocytes % % Monocytes % % Eosinophils % % Basophils % % Neutrophils # (1.3-7.7) k/uL Lymphocytes # (1.0-4.8) k/uL Monocytes # (0-1.0) k/uL Eosinophils # (0-0.7) k/uL Basophils # (0-0.2) k/uL PT (9.0-12.0) sec INR (<1.2) APTT (22.0-30.0) sec Sodium 140 (137-145) mmol/L Potassium 4.1 (3.5-5.1) mmol/L Chloride 105 (98-107) mmol/L Carbon Dioxide 27 (22-30) mmol/L Anion Gap 8 mmol/L BUN 12 (7-17) mg/dL Creatinine 0.90 (0.52-1.04) mg/dL Est GFR (CKD-EPI)AfAm 71 (>60 ml/min/1.73 sqM) Est GFR (CKD-EPI)NonAf 61 (>60 ml/min/1.73 sqM) Glucose 92 (74-99) mg/dL Plasma Lactic Acid Nikolay 1.4 (0.7-2.0) mmol/L Calcium 9.8 (8.4-10.2) mg/dL Magnesium 2.0 (1.6-2.3) mg/dL Total Bilirubin 0.6 (0.2-1.3) mg/dL AST 15 (14-36) U/L ALT <6 (4-34) U/L Alkaline Phosphatase 96 (38-126) U/L Creatine Kinase 32 (30-135) U/L Troponin I <0.012 (0.000-0.034) ng/mL Total Protein 7.0 (6.3-8.2) g/dL Albumin 4.2 (3.5-5.0) g/dL TSH 1.460 (0.465-4.680) mIU/L Urine Color Urine Appearance (Clear) Urine pH (5.0-8.0) Ur Specific [place] (1.001-1.035) Urine Protein (Negative) Urine Glucose (UA) (Negative) Urine Ketones (Negative) Urine Blood (Negative) Urine Nitrite (Negative) Urine Bilirubin (Negative) Urine Urobilinogen (<2.0) mg/dL Ur Leukocyte Esterase (Negative) Urine RBC (0-5) /hpf Urine WBC (0-5) /hpf Ur Squamous Epith Cells (0-4) /hpf Urine Bacteria (None) /hpf Disposition Clinical Impression: Weakness, Parkinsons disease, Abnormal urinalysis, Dehydration Disposition: ADMITTED IP TO THIS [facility] Condition: Stable Is patient prescribed a controlled substance at d/c from ED?: No Decision to Admit Reason: Admit from EC Decision Date: 03/22/20 Decision Time: 16:34
[2020-03-22 15:58] LABS: Basophils # (A) 0.1 k/uL (0-0.2); Basophils % (A) 1 %; Eosinophils # (A) 0.6 k/uL (0-0.7); Eosinophils % (A) 7 %; HCT 36.9 % (34.0-46.0); Lymphocytes # (A) 1.7 k/uL (1.0-4.8); Lymphocytes % (A) 19 %; MCH 33.1 pg (25.0-35.0); MCHC 35.2 g/dL (31.0-37.0); Mean Platelet Volume 9.1; Monocytes # (A) 0.3 k/uL (0-1.0); Monocytes % (A) 4 %; Neutrophils # (A) 5.9 k/uL (1.3-7.7); Neutrophils % (A) 68 %; Platelet Count 138 k/uL (150-450); RBC 3.92 m/uL (3.80-5.40); RDW 13.1 % (11.5-15.5); WBC 8.6 k/uL (3.8-10.6)
[2020-03-22 16:07] LABS: Appearance,Urine Clear (Clear); Bacteria,Urine Rare /hpf; Bilirubin,Urine Negative (Negative); Blood,Urine Negative (Negative); Color,Urine Colorless; Glucose,Urine (UA) Negative (Negative); Ketones,Urine Negative (Negative); Leukocyte Esterase,Urine Moderate (Negative); Nitrite,Urine Negative (Negative); Protein,Urine Negative (Negative); RBC,Urine 1 /hpf (0-5); Specific Gravity,Urine 1.003 (1.001-1.035); Squamous Epithelial Cell,Urine <1 /hpf (0-4); Urobilinogen,Urine <2.0 mg/dL (<2.0); WBC,Urine 7 /hpf (0-5)
[2020-03-22 16:10] LABS: ALT <6 U/L (4-34); AST 15 U/L (14-36); African American GFR (CKD) 71 (>60 ml/min/1.73 sqM); Albumin 4.2 g/dL (3.5-5.0); Alkaline Phosphatase 96 U/L (38-126); Anion Gap 8 mmol/L; Blood Urea Nitrogen 12 mg/dL (7-17); Calcium 9.8 mg/dL (8.4-10.2); Carbon Dioxide 27 mmol/L (22-30); Chloride 105 mmol/L (98-107); Creatine Kinase 32 U/L (30-135); Glucose 92 mg/dL (74-99); Non-African American GFR(CKD) 61 (>60 ml/min/1.73 sqM); Potassium 4.1 mmol/L (3.5-5.1); Sodium 140 mmol/L (137-145); Total Bilirubin 0.6 mg/dL (0.2-1.3)
[2020-03-22 16:11] LABS: INR 0.9 (<1.2); Partial Thromboplastin Time 22.8 sec (22.0-30.0); Prothrombin Time 10.2 sec (9.0-12.0)
[2020-03-22] MEDS ORDERED: cefTRIAXone IN SWFI 1,000 MG/10 ML SYRINGE IVP STA (16:25)
[2020-03-22] MEDS ORDERED: NALOXONE 0.4 MG/ML 1 ML VIAL IV PRN (16:45)
[2020-03-22] MEDS: SODIUM CHLORIDE 0.9% 1,000 ML IV SCH (17:01)
[2020-03-22] MEDS: ASPIRIN 81 MG PO SCH (19:21)
[2020-03-22] MEDS: ALPRAZolam 0.25 MG TAB PO SCH (19:21)
[2020-03-22] MEDS: CARBIDOPA-LEVODOPA ER 50-200MG 1 EACH TABLET.ER PO SCH (20:53)
[2020-03-22] MEDS: levETIRAcetam 500 MG TAB PO SCH (21:34)
[2020-03-22] MEDS: MIDODRINE 5 MG TAB PO SCH (21:34)
[2020-03-23] MEDS: SODIUM CHLORIDE 0.9% 1,000 ML IV SCH ×2 (04:43→19:28)
[2020-03-23 06:54] LABS: Basophils % (A) 1 %; Eosinophils # (A) 0.5 k/uL (0-0.7); Eosinophils % (A) 8 %; HCT 34.9 % (34.0-46.0); HGB 11.5 gm/dL (11.4-16.0); Lymphocytes # (A) 1.9 k/uL (1.0-4.8); Lymphocytes % (A) 31 %; MCH 31.8 pg (25.0-35.0); MCV 96.4 fL (80.0-100.0); Mean Platelet Volume 9.5; Monocytes # (A) 0.3 k/uL (0-1.0); Monocytes % (A) 5 %; Neutrophils # (A) 3.2 k/uL (1.3-7.7); Neutrophils % (A) 53 %; Platelet Count 132 k/uL (150-450); RBC 3.62 m/uL (3.80-5.40); RDW 13.6 % (11.5-15.5); WBC 6.1 k/uL (3.8-10.6)
[2020-03-23] MEDS: MIDODRINE 5 MG TAB PO SCH ×3 (08:07→19:28)
[2020-03-23] MEDS: CARBIDOPA-LEVODOPA ER 50-200MG 1 EACH TABLET.ER PO SCH (08:08)
[2020-03-23] MEDS: levETIRAcetam 500 MG TAB PO SCH ×2 (08:08→19:28)
[2020-03-23] MEDS: ALPRAZolam 0.25 MG TAB PO SCH (08:08)
--- NOTE | 2020-03-23 11:38 | P.HPIM ---
History of Present Illness 80-year-old pleasant female came to the hospital as she is unable to take care of herself because of the uncontrolled parkinsonian tremor. Patient was recently diagnosed with Parkinson's about 3 months ago patient takes carbidopa and levodopa along with amantadine for Parkinson's. Patient follows up with neurologist as an outpatient. Patient has not been eating or drinking well because of her parkinsonian symptoms. Patient denied any fever chills denied any dysuria denied any suprapubic pain urine is mildly abnormal although no evidence of urinary tract infection clinically patient was given a dose of Rocephin which will not be continued. Patient lives by herself with the frequent visits from the daughter. Patient is basically admitted for hydration and evaluation by physical therapy and occupational therapy at consulted neurology because of her uncontrolled parkinsonian symptoms. Review of Systems REVIEW OF SYSTEMS: CONSTITUTIONAL: as mentioned in HPI HEENT: No recent visual problems or hearing problems. Denied any sore throat. CARDIOVASCULAR: No chest pain, orthopnea, PND, no palpitations, no syncope. PULMONARY: No shortness of breath, no cough, no hemoptysis. GASTROINTESTINAL: No diarrhea, no nausea, no vomiting, no abdominal pain. NEUROLOGICAL: No headaches, no weakness, no numbness. HEMATOLOGICAL: Denies any bleeding or petechiae. GENITOURINARY: Denies any burning micturition, frequency, or urgency. MUSCULOSKELETAL/RHEUMATOLOGICAL: Denies any joint pain, swelling, or any muscle pain. ENDOCRINE: Denies any polyuria or polydipsia. The rest of the 14-point review of systems is negative. Past Medical History Additional Past Medical History / Comment(s): Hx Lt rotator cuff tear,IBS, parkinson's disease (diagnosis about 01/24), hypotension, History of Any Multi-Drug Resistant Organisms: None Reported Past Surgical History: Cholecystectomy, Orthopedic Surgery Additional Past Surgical History / Comment(s): Lt Rot Cuff Repair,tumor removed from rt arm Past Anesthesia/Blood Transfusion Reactions: No Reported Reaction Additional Past Anesthesia/Blood Transfusion Reaction / Comment(s): no hx blood transfusion Past Psychological History: Anxiety Smoking Status: Former smoker Past Alcohol Use History: None Reported Additional Past Alcohol Use History / Comment(s): started smoking approx age 24,1ppd Past Drug Use History: None Reported - Past Family History Brother(s) Family Medical History: Cancer Sister(s) Family Medical History: Cancer Daughter(s) Family Medical History: Cancer Mother Family Medical History: No Reported History Father Family Medical History: Myocardial Infarction ([place]) Medications and Allergies Home Medications Medication Instructions Recorded Confirmed Type Aspirin [Adult Low Dose Aspirin EC] 81 mg PO HS@2300 11/30/19 03/23/20 History Carbidopa-Levodopa ER 50-200Mg 1 tab PO TID@0800,1600,23011/30/19 03/23/20 History [Sinemet ER 50-200] amantadine HCL [Amantadine] 100 mg PO BID@08,199911/30/19 03/23/20 History levETIRAcetam [Keppra] 500 mg PO BID@0800,199911/30/19 03/23/20 History Cholecalciferol (Vitamin D3) 250 mcg PO DAILY@159901/28/20 03/23/20 History [Vitamin D3] Midodrine HCl [ProAmatine] 10 mg PO TID@0800,1600,23001/28/20 03/23/20 History ALPRAZolam [Xanax] 0.125 mg PO BID@0800,199903/22/20 03/23/20 History Allergies Allergy/AdvReac Type Severity Reaction Status Date / Time Penicillins Allergy Rash/Hives Verified 03/22/20 16:51 Physical Exam Vitals: Vital Signs Temp Pulse Pulse Resp BP BP Pulse Ox 03/23/20 07:52 97.5 F L 77 18 182/75 95 03/23/20 02:00 98 F 95 18 147/83 96 03/22/20 20:00 98.5 F 84 17 140/62 95 03/22/20 18:07 97.6 F 81 18 189/77 97 03/22/20 17:31 98.2 F 03/22/20 17:00 73 20 159/78 97 03/22/20 16:08 70 19 136/65 97 03/22/20 15:01 98.4 F 76 22 153/74 97 Intake and Output 03/22/20 03/23/20 03/23/20 22:59 06:59 14:59 Intake Total 600 1200 Balance 600 1200 Intake: Intake, IV Titration 600 Amount Sodium Chloride 0.9% 1, 600 000 ml @ 75 mls/hr IV . [id number] [facility] Rx#:[id number] Oral 1200 Other: Voiding Method Bedpan Bedpan Diaper # Voids 1 2 1 Weight 52.163 kg PHYSICAL EXAMINATION: GENERAL: The patient is alert and oriented x3, not in any acute distress. controllable or tremor parkinsonian tremor. HEENT: Pupils are round and equally reacting to light. EOMI. No scleral icterus. No conjunctival pallor. Normocephalic, atraumatic. No pharyngeal erythema. No thyromegaly. CARDIOVASCULAR: S1 and S2 present. No murmurs, rubs, or gallops. PULMONARY: Chest is clear to auscultation, no wheezing or crackles. ABDOMEN: Soft, nontender, nondistended, normoactive bowel sounds. No palpable organomegaly. MUSCULOSKELETAL: No joint swelling or deformity. EXTREMITIES: No cyanosis, clubbing, or pedal edema. NEUROLOGICAL: Gross neurological examination did not reveal any focal deficits. SKIN: No rashes. Results CBC & Chem 7: 03/23/20 06:15 03/22/20 15:43 Labs: Abnormal Lab Results - Last 24 Hours (Table) 03/22/20 03/22/20 03/23/20 Range/Units 15:43 15:43 06:15 RBC 3.62 L (3.80-5.40) m/uL Plt Count 138 L 132 L (150-450) k/uL Ur Leukocyte Esterase Moderate H (Negative) Urine WBC 7 H (0-5) /hpf Urine Bacteria Rare H (None) /hpf Thrombosis Risk Factor Assmnt - Choose All That Apply Any of the Below Risk Factors Present?: Yes Other Risk Factors: Yes Each Risk Factor Represents 3 Points: Age 75 years or older Thrombosis Risk Factor Assessment Total Risk Factor Score: 3 Thrombosis Risk Factor Assessment Level: Moderate Risk Assessment and Plan Plan: -Parkinson's with uncontrollable tremor leading to extremely poor functionality physical therapy and occupational therapy will evaluate the patient .patient will be resumed on her home parkinsonian medications neurology will be consulted -Mild dehydration patient was started on IV fluids which will be continued for today -UTI ruled out no evidence of urinary tract infection patient may have mild is some dry patchy area will which will not warrant any antibiotics patient received 1 dose of Rocephin. -DVT prophylaxis with Lovenox
[2020-03-23 12:16] LABS: African American GFR (CKD) 70.5 (60.0-200.0); Anion Gap 5.5 mmol/L (4.00-12.00); BUN/Creat Ratio 11.11 Ratio (12.00-20.00); Carbon Dioxide 26.5 mmol/L (21.6-31.8); Non-African American GFR(CKD) 60.8 (60.0-200.0); Potassium 3.5 mmol/L (3.5-5.5)
[2020-03-23] MEDS: CHOLECALCIFEROL 400 UNIT TAB PO SCH (15:56)
[2020-03-23] MEDS: CARBIDOPA-LEVODOPA 25-100 MG 1 EACH TAB PO SCH ×2 (15:59→19:28)
--- NOTE | 2020-03-23 16:29 | P.CNNES ---
History of Present Illness Consult date: 03/23/20 Reason for Consult: Parkinson's disease/uncontrolled tremor History of Present Illness: The patient is a 80-year-old female who is seen in neurologic consultation on March 23, 2020 via teleneurology. The patient reports having a tremor for as long as she can remember. The patient's daughter also reports that her mother has had a tremor all of the daughter's life. The patient herself reports that her twin sister and one brother have had a tremor for many many years. There are 9 siblings total and 3 of them have severe tremors. She reports that neither of her parents headache tremor. Per the patient's daughter, the patient was diagnosed with Parkinson's disease 3 years ago. At that point in time the patient had had a fall, as well as 2-3 presyncopal episodes. The patient was reportedly evaluated by cardiology and was referred to neurology. The patient was reportedly started on Sinemet ER 50/200 mg 3 times daily. Approximately 6 months ago the patient was started on Keppra because there was a reported abnormality on her EEG. Amantadine was started approximately 9 months ago. This medication reportedly made the patient's tremor worse. The patient reports that her tremor has gotten worse over the past year. According to her daughter, the patient has good days and bad days. Apparently on the bad days, she shuffles her feet when walking. On the good days, she is able to lift her feet when walking. The patient denies difficulty swallowing. She denies difficulty with memory. As far as the patient recalls, her tremor began in her upper extremities, bilaterally at the same time. The patient reports that she sleeps well. The tremors resolved while the patient is sleeping. Past Medical History Additional Past Medical History / Comment(s): Hx Lt rotator cuff tear,IBS, parkinson's disease (diagnosis about 01/24), hypotension, History of Any Multi-Drug Resistant Organisms: None Reported Past Surgical History: Cholecystectomy, Orthopedic Surgery Additional Past Surgical History / Comment(s): Lt Rot Cuff Repair,tumor removed from rt arm Past Anesthesia/Blood Transfusion Reactions: No Reported Reaction Additional Past Anesthesia/Blood Transfusion Reaction / Comment(s): no hx blood transfusion Past Psychological History: Anxiety Smoking Status: Former smoker Past Alcohol Use History: None Reported Additional Past Alcohol Use History / Comment(s): started smoking approx age 24,1ppd Past Drug Use History: None Reported - Past Family History Brother(s) Family Medical History: Cancer Additional Family Medical History / Comment(s): severe tremor in 2 siblings Sister(s) Family Medical History: Cancer Daughter(s) Family Medical History: Cancer Mother Family Medical History: No Reported History Father Family Medical History: Myocardial Infarction (NH) Medications and Allergies Home Medications Medication Instructions Recorded Confirmed Type Aspirin [Adult Low Dose Aspirin EC] 81 mg PO HS@23011/30/19 03/23/20 History Carbidopa-Levodopa ER 50-200Mg 1 tab PO TID@0800,1600,23011/30/19 03/23/20 History [Sinemet ER 50-200] amantadine HCL [Amantadine] 100 mg PO BID@0800,199911/30/19 03/23/20 History levETIRAcetam [Keppra] 500 mg PO BID@0800,199911/30/19 03/23/20 History Cholecalciferol (Vitamin D3) 250 mcg PO DAILY@159901/28/20 03/23/20 History [Vitamin D3] Midodrine HCl [ProAmatine] 10 mg PO TID@0800,1600,23001/28/20 03/23/20 History ALPRAZolam [Xanax] 0.125 mg PO BID@0800,199903/22/20 03/23/20 History Allergies Allergy/AdvReac Type Severity Reaction Status Date / Time Penicillins Allergy Rash/Hives Verified 03/22/20 16:51 Physical Examination - Vital Signs Vital Signs: Vital Signs Temp Pulse Pulse Resp BP BP Pulse Ox 03/23/20 07:52 97.5 F L 77 18 182/75 95 03/23/20 02:00 98 F 95 18 147/83 96 03/22/20 20:00 98.5 F 84 17 140/62 95 03/22/20 18:07 97.6 F 81 18 189/77 97 03/22/20 17:31 98.2 F 03/22/20 17:00 73 20 159/78 97 03/22/20 16:08 70 19 136/65 97 03/22/20 15:01 98.4 F 76 22 153/74 97 Intake and Output 03/22/20 03/23/20 03/23/20 22:59 06:59 14:59 Intake Total 600 1200 Balance 600 1200 Intake: Intake, IV Titration 600 Amount Sodium Chloride 0.9% 1, 600 000 ml @ 75 mls/hr IV . [id number] [facility] Rx#:[id number] Oral 1200 Other: Voiding Method Bedpan Bedpan Diaper # Voids 1 2 1 Weight 52.163 kg Gen.: The patient is reclining in the bed. She is well-nourished. She is observed to to have a tremulous movements of her head, trunk, arms, legs, feet and tongue. HEENT: Head is atraumatic, normocephalic. Fundus not visualized. There is no scleral icterus. Mucous membranes are moist. There is a head tremor. Neck: Supple without carotid bruits Heart: Regular rate and rhythm Lungs: Clear to auscultation Extremities: Without edema Neurologic examination Mental status: The patient is awake, alert and oriented 3. Her speech is slightly dysarthric. The patient has full facial expression. She has a normal blink rate. Speech is normal in volume. Cranial nerves: Pupils are equal, round and reactive to light. Visual salomon are full to confrontation. Extraocular movements are intact. There is no nystagmus. Facial sensation is intact. There is no facial asymmetry. Hearing is grossly intact. Uvula and palate are midline. Shoulder shrug is symmetric. Tongue protrudes midline. There is a tremor of the tongue. Motor: Strength in the right lower extremity is 3/5. Left lower extremity strength 4-5/5. Bilateral ankle plantar and dorsiflexors4-5/5. Mother Repairer strength is 5/5. There is no cogwheel rigidity. Coordination: The patient has marked difficulty performing finger to nose testing secondary to severe intention tremor of the bilateral upper extremities. Abnormal movements: There are tremors the head, upper extremities, lower extremities, trunk and tongue. These tremors worsen with movement. Deep tendon reflexes: 1+/4+ in the upper extremities. 0-1+/4+ in the lower e xtremities. Because of the marked tremor, these are difficult to accurately assess. Sensation: Grossly intact to light touch. There is no extinction with double simultaneous stimulation. Results - Laboratory Findings CBC and BMP: 03/23/20 06:15 03/23/20 06:15 Abnormal Lab Findings: Abnormal Labs 03/22/20 03/22/20 03/23/20 15:43 15:43 06:15 RBC 3.62 L Plt Count 138 L 132 L Chloride BUN/Creatinine Ratio Ur Leukocyte Esterase Moderate H Urine WBC 7 H Urine Bacteria Rare H 03/23/20 06:15 RBC Plt Count Chloride 110 H BUN/Creatinine Ratio 11.11 L Ur Leukocyte Esterase Urine WBC Urine Bacteria Assessment and Plan Assessment: 1. The patient is a 80-year-old female with reported shaking/tremor "all my life". These tremors are not consistent with Parkinson's disease. They are con sistent with essential tremor. Must also consider David's disease Tremors have likely increased secondary to high dose of Sinemet and amantadine 2. Reported orthostatic hypotension likely secondary to high dose Sinemet Plan: 1. Will begin taper of Sinemet. Will lower her dose to 25/100 mg, 3 times daily 2. Will check ceruloplasmin level 3. Monitor blood pressure as lowering the dose of Sinemet may result in elevation of blood pressure and therefore lack of need for midodrine 4. Dr. Can Rodriguez will assume neurologic coverage of this patient tomorrow Thank you for allowing me to participate in the care of this patient Time with Patient: Greater than 30 (spent 45 minutes with patient via teleneurology)
[2020-03-23] MEDS: ASPIRIN 81 MG PO SCH (19:28)
[2020-03-24] MEDS: SODIUM CHLORIDE 0.9% 1,000 ML IV SCH ×2 (08:30→22:08)
[2020-03-24] MEDS: levETIRAcetam 500 MG TAB PO SCH (08:31)
[2020-03-24] MEDS: ENOXAPARIN 40 MG/0.4 ML SYRINGE SQ SCH (08:34)
[2020-03-24] MEDS: MIDODRINE 5 MG TAB PO SCH ×3 (08:34→21:34)
[2020-03-24] MEDS: CARBIDOPA-LEVODOPA 25-100 MG 1 EACH TAB PO SCH ×3 (08:34→22:05)
--- NOTE | 2020-03-24 14:02 | P.PN ---
Subjective Progress Note Date: 03/24/20 Patient was seen at bedside and she stated that she feels about the same today compared to yesterday. She stated that she had tremors for last the 10-15 years but cannot tell me which side started first and she feels her tremors are with resting as well as with movement. She could not tell me if there is any progression of her symptoms. She stated that her twin sister has the same tremors as well as her younger brother but could not tell me how old her brother was when he had the symptoms. She follows up with Dr. Paula as her neurologist and that she was told that she has Parkinson's and she said with a different medication that he tried she has not noticed any benefit. She cannot tell me what the workup she had. For neurological history detail is referred to Dr. Desai's consultation note. TSH is 1.460 which is normal. Objective - Vital Signs Vital signs: Vital Signs Temp 98.4 F 03/24/20 07:22 Pulse 84 03/24/20 07:22 Resp 18 03/24/20 07:22 BP 161/70 03/24/20 07:22 Pulse Ox 96 03/24/20 07:22 Intake & Output 03/23/20 03/24/20 03/24/20 18:59 06:59 18:59 Intake Total 1200 600 Balance 1200 600 Intake: Intake, IV Titration 600 Amount Sodium Chloride 0.9% 1, 600 000 ml @ 75 mls/hr IV . [id number] [facility] Rx#:[id number] Oral 1200 Other: Voiding Method Bedpan Bedpan # Voids 1 3 1 # Bowel Movements 1 - Exam GENERAL: The patient is lying in bed and is not in acute distress. NEUROLOGICAL: Higher mental function: The patient is awake, alert, oriented to self, place and time. Patient is following commands. No aphasia and no neglect. Cranial nerves: The pupils are round, equal and reactive to light and accommodation. Visual salomon are full to confrontation throughout. Extraocular movement is intact no nystagmus is noted. Facial sensation is normal to touch throughout. The facial strength is normal throughout. Hearing is normal bilaterally to hand rub. Tongue is midline and moved [id number] without any difficulty. There is some tremor of the tongue. No dysarthria is noted. Shoulder shrug is normal bilaterally. Motor: Gait is deferred. The strength is 5 over 5 throughout bilateral upper extremity while lower is 4+/5 bilaterally while ankles are 4+ to 5- bila terally.. Normal tone and bulk. She has resting tremor of bilateral upper and lower extremities at rest and with activity but seemed somewhat worse with action. Upon assking the patient to relax there seems to be mild resolution of tremor of upper extremties. Cerebellum: Normal finger to nose bilaterally. Sensation: Sensation is normal to touch throughout. Reflexes (right/left): Hard to assess because of her tremor but had at least 1+ throughout. Plantars are downgoing bilaterally. - Labs CBC & Chem 7: 03/23/20 06:15 03/23/20 06:15 Assessment and Plan Assessment: Tremors unknown exact etiology. One of the consideration is essential tremor. This does not seem Parkinson's or parkinsonian in etiology. And I agree the tremors possibly that was increased secondary due to high dose of Sinemet and amantadine Reported orthostatic hypotension likely secondary due to high dose of Sinemet Reported abnormal EEGs that as a result was started Keppra by her neurologist Plan: Currently the patient is on the Sinemet 25/100 one tablet 3 times a day. I decrease her home dose of amantadine from 100 mg 1 tablet twice a day to 50 mg 1 tablet twice a day Patient is on Midorine 10 mg 1 tablet daily 3 times a day and because of elevation of blood pressure, I lowered it to 5mg 1 tab TID. The daughter was notified of this and was notified if her blood pressure is low to contact her physician to possible increasing the dose. She is on Keppra 500 mg 1 tablet twice a day. I will stop the Keppra and I will start the topiramate can help with essential tremor and ?abnormal EEG changes if concerned for history of seizure. If no improvement in tremors, then topiramate can increase it down the line and upon reviewing literature the dose range is between 150 mg a day to 300mg a day but will defer as an outpatient. I ordered orthostatic vitals that's including blood pressure and heart rate if possible. The patient needs to follow-up with a movement disorder specialist within 1-2 weeks as outpatient. Possible consider seeing Dr. Jh Ferrell at [facility] or at [facility] unless family know. Possible consider EV scan or genetic testing as outpatient. The plan was discussed with patient's and well her daughter (Abby) via phone. Can Rodriguez MD Neuro-Hospitalist. Time with Patient: Greater than 30
[2020-03-24] MEDS: CHOLECALCIFEROL 400 UNIT TAB PO SCH (17:12)
[2020-03-24] MEDS: ASPIRIN 81 MG PO SCH (22:01)
[2020-03-24] MEDS: TOPIRAMATE 25 MG TAB PO SCH ×2 (22:05→22:06)
[2020-03-25 08:36] VITALS: BP 164/69; PULSE 82; RESP 17; TEMP 98.2
[2020-03-25] MEDS: MIDODRINE 5 MG TAB PO SCH (08:36)
[2020-03-25] MEDS: ENOXAPARIN 40 MG/0.4 ML SYRINGE SQ SCH (08:37)
[2020-03-25] MEDS: CARBIDOPA-LEVODOPA 25-100 MG 1 EACH TAB PO SCH (08:38)
[2020-03-25] MEDS: TOPIRAMATE 25 MG TAB PO SCH (08:38)
[2020-03-25] MEDS ORDERED: CHOLECALCIFEROL 10 MCG (400 IU) TABLET PO SCH (16:00)
--- NOTE | 2020-03-25 16:59 | P.DS ---
Providers Date of admission: 03/22/20 16:45 Expected date of discharge: 03/25/20 Attending physician: Rick Rudd Consults: 03/23/20 10:26 Consult Physician Routine Consulting Provider: Aileen Desai Consult Reason/Comments: Parkinsons Do you want consulting provider notified?: Yes Primary care physician: Rick Rudd Hospital Course: Final diagnoses: Worsened Tremors at rest and with exertion, etiology unclear, possibly essential tremor, possibly David's disease. Possibly increased secondary to Sinemet and amantadine. Evaluated by neurology-does not appear to be parkinsonian etiology. Reported Orthostatic hypotension, unable to obtain true set of vital signs here related to significant tremors, suspect related to Sinemet, dose decreased Reported abnormal EEGs and patient had been started on Keppra by outpatient neurologist. Anxiety Former nicotine dependence IBS Parkinson's disease, reports diagnosed around 01/24 Hospital course: This patient was admitted with significantly worsening tremors suspected secondary to high dose of Sinemet and amantadine and multiple other medical issues. Evaluated by neurology with multiple medications changed as well as recommending patient follow-up with a movement disorder specialist within [address]. [address] Jh Ferrell [facility]-staff reporting authorization received later yesterday afternoon. Family was unable to pharmacy picking technician patient last night. Neurology also suggest EV scanned/genetic testing. Sinemet, amantadine and Midodrin doses were decreased. Close monitoring of blood pressure recommended as patient eventually may not require Midodrin. Keppra was discontinued and Topamax initiated. Adjusted home med regimen and neurology's recommendation discussed between neurologist and daughter Abby. Patient has been cleared by neurology for discharge and patient will be discharged home today in a stable condition with guarded prognosis. Please refer to EHR for full details and specifics.Ceruloplasmin level pending. The impression and plan of care has been dictated as directed. : I performed a history and examination of this patient, discussed the same with the dictator. I agree with the dictator's note ,documented as a scribe. Any additional findings or plans will be noted. Patient Condition at Discharge: Stable Plan - Discharge Summary New Discharge Prescriptions: New Carbidopa-Levodopa 25-100 mg [Sinemet 25-100 mg] 1 each PO TID #90 tab Topiramate [Topamax] 50 mg PO BID #120 tab Cholecalciferol [Vitamin D3 (10 Mcg = 400 Iu)] 400 unit PO DAILY@1600 tab Continue Aspirin [Adult Low Dose Aspirin EC] 81 mg PO HS@2300 Cholecalciferol (Vitamin D3) [Vitamin D3 (5000 Iu)] 250 mcg PO DAILY@1600 Changed Midodrine HCl [ProAmatine] 5 mg PO TID@0800,1600,2300 #0 Discontinued Midodrine HCl [ProAmatine] 10 mg PO TID@0800,1600,2300 ALPRAZolam [Xanax] 0.125 mg PO BID@0800,1999 Discharge Medication List Aspirin [Adult Low Dose Aspirin EC] 81 mg PO HS@2300 11/30/19 [History] Cholecalciferol (Vitamin D3) [Vitamin D3 (5000 Iu)] 250 mcg PO DAILY@1600 01/28/20 [History] Carbidopa-Levodopa 25-100 mg [Sinemet 25-100 mg] 1 each PO TID #90 tab 03/25/20 [Rx] Cholecalciferol [Vitamin D3 (10 Mcg = 400 Iu)] 400 unit PO DAILY@1600 tab 03/25/20 [Rx] Midodrine HCl [ProAmatine] 5 mg PO TID@0800,1600,2300 #0 03/25/20 [Rx] Topiramate [Topamax] 50 mg PO BID #120 tab 03/25/20 [Rx] Follow up Appointment(s)/Referral(s): [facility] [Provider Group] - 1 Week Mita Paula MD [Family Provider] - 1 Week Jh Ferrell MD [REFERRING] - 1 Week Rick Rudd DO [Primary Care Provider] - 3 Days [facility], [NON-STAFF] - 1-2 Days Patient Instructions/Handouts: Weakness (DC) Activity/Diet/Wound Care/Special Instructions: Authorization received for movement disorder specialist in [place] as recommended per neurology. Manual Rx given for amantadine, dose was decreased per neurology to 50 mg twice a day. Only give Midodrine when systolic blood pressure is in the 90s Discharge Disposition: HOME WITH HOME HEALTH SERVICES
--- NOTE | 2020-03-25 17:02 | P.PN ---
Subjective Progress Note Date: 03/25/20 She was seen at bedside today and she continues to have tremoring of both upper and lower extremity. It is both at rest and with activity. Patient orthostatic is blood pressure supine is 173/76 with a heart rate of 84, sitting is 172/79 with a heart rate 94 and standing is 193/92 with a heart rate of 94. TSH is 1.460 which is considered normal. Surgical plasm level is 23.1 which is considered normal. Objective - Vital Signs Vital signs: Vital Signs Temp 98.2 F 03/25/20 08:00 Pulse 82 03/25/20 08:00 Resp 17 03/25/20 08:00 BP 164/69 03/25/20 08:00 Pulse Ox 96 03/25/20 08:00 Intake & Output 03/24/20 03/25/20 03/25/20 18:59 06:59 18:59 Intake Total 600 Output Total 1000 600 Balance 600 -1000 -600 Intake: Oral 600 Output: Urine 1000 600 Other: Voiding Method Bedpan # Voids 1 2 1 # Bowel Movements 1 - Exam GENERAL: The patient is lying in bed and is not in acute distress. NEUROLOGICAL: Higher mental function: The patient is awake, alert, oriented to self, place and time. Patient is following commands. No aphasia and no neglect. Cranial nerves: The pupils are round, equal and reactive to light and acco mmodation. Visual salomon are full to confrontation throughout. Extraocular movement is intact no nystagmus is noted. Facial sensation is normal to touch throughout. The facial strength is normal throughout. Hearing is normal bilaterally to hand rub. Tongue is midline and moved [id number] without any difficulty. There is some tremor of the tongue. No dysarthria is noted. Shoulder shrug is normal bilaterally. Motor: Gait is deferred. The strength is 5 over 5 throughout bilateral upper extremity while lower is 4+/5 bilaterally while ankles are 4+ to 5- bilaterally.. Normal tone and bulk. She has resting tremor of bilateral upper and lower extremities at rest and with activity but seemed somewhat worse with action. Upon assking the patient to relax there seems to be mild resolution of tremor of upper extremties. Cerebellum: Normal finger to nose bilaterally. Sensation: Sensation is normal to touch throughout. Reflexes (right/left): Hard to assess because of her tremor but had at least 1+ throughout. Plantars are downgoing bilaterally. - Labs CBC & Chem 7: 03/23/20 06:15 03/23/20 06:15 Assessment and Plan Assessment: Tremors unknown exact etiology. One of the consideration is essential tremor. This does not seem Parkinson's or parkinsonian in etiology. And I agree the tremors possibly that was increased secondary due to high dose of Sinemet and amantadine Reported orthostatic hypotension likely secondary due to high dose of Sinemet Reported abnormal EEGs that as a result was started Keppra by her neurologist Plan: Currently the patient is on the Sinemet 25/100 one tablet 3 times a day. I decrease her home dose of amantadine from 100 mg 1 tablet twice a day to 50 mg 1 tablet twice a day on 03/24/20 Patient is on Midorine 10 mg 1 tablet daily 3 times a day and because of elevation of blood pressure, I lowered it to 5mg 1 tab TID on 03/24/20. She did not use admitted drain because her blood pressure was 167 190s systolic. I recommend to hold off on midodrine unless the systolic blood pressure is 100 and I would use only if it's in the 90s. Patient needs to follow-up with her shovel log loader operator as an outpatient within 1-2 weeks. I stopped Keppra and started topiramate 50mg 1 tab bid, which can help with essential tremor and ?abnormal EEG changes if concerned for history of seizure. If no improvement in tremors, then topiramate can increase it down the line and upon reviewing literature the dose range is between 150 mg a day to 300mg a day but will defer as an outpatient. Patient orthostatic was negative. The patient needs to follow-up with a movement disorder specialist within 1-2 weeks as outpatient. Possible consider seeing Dr. Jh Ferrell at [facility] or at [facility] unless family know. Possible consider EV scan or genetic testing as outpatient. The plan was discussed with patient's and well her daughter (Abby) via phone. Can Rodriguez MD Neuro-Hospitalist.
== END 2020-03-25 10:50 | disposition home health service (06) ==
LOC: EC 14:48 → 5NMEDONC 16:45
PROVIDERS: ADMIT Family Medicine; ATTEND Family Medicine
DX: R25.1 Tremor, unspecified (principal); R53.1 Weakness; G20 Parkinson's disease; R82.90 Unspecified abnormal findings in urine; I95.1 Orthostatic hypotension; K58.9 Irritable bowel syndrome, unspecified; E86.0 Dehydration; F41.9 Anxiety disorder, unspecified; Z79.82 Long term (current) use of aspirin; Z79.899 Other long term (current) drug therapy; Z88.0 Allergy status to penicillin; Z87.39 Personal history of other diseases of the musculoskeletal system and connective tissue; Z90.49 Acquired absence of other specified parts of digestive tract; Z98.890 Other specified postprocedural states; Z87.891 Personal history of nicotine dependence; Z91.81 History of falling; Z80.9 Family history of malignant neoplasm, unspecified; Z82.49 Family history of ischemic heart disease and other diseases of the circulatory system; Z82.0 Family history of epilepsy and other diseases of the nervous system
CPT/HCPCS: 96361 ×3; 96372 ×2; 96374; 99285; 36415; 93005; 97162; 97166; 80053; 80048; 84443; 82550; 83605; 83735; 84484; 85025 ×2; 85610; 85730; 81001; 82390; G0378 ×4; J1650 ×2; J0696

== ENCOUNTER 2020-05-06 11:50 | Observation (INO) | payer MEDICARE, BC ==
[2020-05-06] MEDS ORDERED: SODIUM CHLORIDE 0.9% 1,000 ML IV STA (12:07)
--- NOTE | 2020-05-06 12:20 | ED ---
General Adult HPI - General Chief complaint: Weakness Stated complaint: dehydration/weakness Time Seen by Provider: 05/06/20 11:56 Source: patient, EMS, RN notes reviewed Mode of arrival: EMS Limitations: no limitations - History of Present Illness Initial comments: Patient is a pleasant 71-year-old female presenting to the emergency department with concerns for dehydration. Patient has had urinary frequency. No dysuria. Patient is having some fatigue and general weakness. Patient states is difficult to get to the restroom and take care of herself. No isolated area of weakness or confusion. Patient does have chronic Parkinson's - Related Data Home Medications Medication Instructions Recorded Confirmed Aspirin [Adult Low Dose Aspirin EC] 81 mg PO HS@2300 11/30/19 05/06/20 ALPRAZolam [Xanax] 0.125 mg PO BID@0800,1999 PRN 05/06/20 05/06/20 Amantadine 100mg Tablet 50 mg PO BID@0800,199905/06/20 05/06/20 Carbidopa-Levodopa 25-100 mg 1 tab PO TID@0800,1600,2300 05/06/20 05/06/20 [Sinemet 25-100 mg] Cholecalciferol (Vitamin D3) 250 mcg PO DAILY@159905/06/20 05/06/20 [Vitamin D3 (5000 Iu)] Docusate [Colace] 100 mg PO BID@0800,199905/06/20 05/06/20 Magnesium 250 mg PO DAILY@1600 05/06/20 05/06/20 Midodrine HCl [ProAmatine] 5 mg PO TID@0800,1600,2300 PRN 05/06/20 05/06/20 Topiramate [Topamax] 50 mg PO BID@0800,199905/06/20 05/06/20 Allergies Allergy/AdvReac Type Severity Reaction Status Date / Time Penicillins Allergy Rash/Hives Verified 05/06/20 13:25 Review of Systems ROS Statement: Those systems with pertinent positive or pertinent negative responses have been documented in the HPI. ROS Other: All systems not noted in ROS Statement are negative. Constitutional: Denies: fever Eyes: Denies: eye pain ENT: Denies: ear pain Respiratory: Denies: cough Cardiovascular: Denies: chest pain Endocrine: Reports: fatigue Gastrointestinal: Denies: abdominal pain Genitourinary: Reports: urgency, frequency Musculoskeletal: Denies: back pain Skin: Denies: rash Neurological: Denies: headache 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 Past Anesthesia/Blood Transfusion Reactions: No Reported Reaction Additional Past Anesthesia/Blood Transfusion Reaction / Comment(s): no hx blood transfusion Past Psychological History: Anxiety Smoking Status: Former smoker Past Alcohol Use History: None Reported Past Drug Use History: None Reported - Past Family History Brother(s) Family Medical History: Cancer Additional Family Medical History / Comment(s): severe tremor in 2 siblings Sister(s) Family Medical History: Cancer Daughter(s) Family Medical History: Cancer Mother Family Medical History: No Reported History Father Family Medical History: Myocardial Infarction ([place]) General Exam Limitations: no limitations General appearance: alert, in no apparent distress Head exam: Present: normocephalic Eye exam: Present: normal appearance, PERRL ENT exam: Present: normal oropharynx Neck exam: Present: normal inspection Respiratory exam: Present: normal lung sounds bilaterally Cardiovascular Exam: Present: regular rate, normal rhythm GI/Abdominal exam: Present: soft. Absent: tenderness Extremities exam: Present: normal inspection. Absent: pedal edema, calf tenderness Neurological exam: Present: alert, oriented X3, CN II-XII intact. Absent: motor sensory deficit Expanded Neurological exam: Present: protecting the airway Speech: Present: fluid speech Cranial nerves: EOM's Intact: Normal Motor strength exam: RUE: 5, LUE: 5, RLE: 5, LLE: 5 Eye Response: (4) open spontaneously Motor Response: (6) obeys commands Verbal Response: (5) oriented Psychiatric exam: Present: normal affect, normal mood Skin exam: Present: normal color Course Vital Signs 05/06/20 05/06/20 11:51 11:57 Temperature 98.1 F 98.1 F Pulse Rate 76 73 Respiratory 16 16 Rate Blood Pressure 132/88 132/89 O2 Sat by Pulse 95 98 Oximetry EKG Findings - EKG Comments: EKG Findings:: Normal sinus rhythm 67. MI 162. QRS 84. QT 412. QTC 435. Normal axis. Normal QRS. Nonspecific ST-T. Medical Decision Making - Medical Decision Making Patient reevaluated. Patient and daughter updated. Daughter states patient had significant difficulty getting around recently and was unable to walk on her own last night and today. She states they are questioning Parkinson's diag nosis. She states recent medication changes were made which appeared to be improving symptoms prior to the last few days. She does not feel comfortable with patient being discharged home. At this time she does not want patient to be seen by neurology until Dr. Rudd sees the patient and determines that. Case was discussed in detail with Dr. Kwong, who will admit covering for Dr. Rudd. - Lab Data Result diagrams: 05/06/20 12:15 05/06/20 12:15 Lab Results 05/06/20 05/06/20 05/06/20 Range/Units 12:15 12:15 12:15 WBC 7.6 (3.8-10.6) k/uL RBC 3.50 L (3.80-5.40) m/uL Hgb 11.2 L (11.4-16.0) gm/dL Hct 33.4 L (34.0-46.0) % MCV 95.4 (80.0-100.0) fL MCH 31.9 (25.0-35.0) pg MCHC 33.4 (31.0-37.0) g/dL RDW 13.3 (11.5-15.5) % Plt Count 203 (150-450) k/uL MPV 8.5 Neutrophils % 63 % Lymphocytes % 21 % Monocytes % 5 % Eosinophils % 9 % Basophils % 1 % Neutrophils # 4.7 (1.3-7.7) k/uL Lymphocytes # 1.6 (1.0-4.8) k/uL Monocytes # 0.3 (0-1.0) k/uL Eosinophils # 0.7 (0-0.7) k/uL Basophils # 0.1 (0-0.2) k/uL PT 10.2 (9.0-12.0) sec INR 0.9 (<1.2) APTT 20.1 L (22.0-30.0) sec Sodium 141 (137-145) mmol/L Potassium 3.2 L (3.5-5.1) mmol/L Chloride 109 H (98-107) mmol/L Carbon Dioxide 21 L (22-30) mmol/L Anion Gap 11 mmol/L BUN 9 (7-17) mg/dL Creatinine 1.12 H (0.52-1.04) mg/dL Est GFR (CKD-EPI)AfAm 54 (>60 ml/min/1.73 sqM) Est GFR (CKD-EPI)NonAf 47 (>60 ml/min/1.73 sqM) Glucose 85 (74-99) mg/dL Plasma Lactic Acid Nikolay (0.7-2.0) mmol/L Calcium 9.3 (8.4-10.2) mg/dL Magnesium 1.8 (1.6-2.3) mg/dL Total Bilirubin 0.5 (0.2-1.3) mg/dL AST 16 (14-36) U/L ALT 6 (4-34) U/L Alkaline Phosphatase 102 (38-126) U/L Creatine Kinase 40 (30-135) U/L Troponin I (0.000-0.034) ng/mL Total Protein 6.2 L (6.3-8.2) g/dL Albumin 3.5 (3.5-5.0) g/dL Urine Color Urine Appearance (Clear) Urine pH (5.0-8.0) Ur Specific [place] (1.001-1.035) Urine Protein (Negative) Urine Glucose (UA) (Negative) Urine Ketones (Negative) Urine Blood (Negative) Urine Nitrite (Negative) Urine Bilirubin (Negative) Urine Urobilinogen (<2.0) mg/dL Ur Leukocyte Esterase (Negative) Urine RBC (0-5) /hpf Urine WBC (0-5) /hpf Ur Squamous Epith Cells (0-4) /hpf Urine Bacteria (None) /hpf 05/06/20 05/06/20 05/06/20 Range/Units 12:15 12:15 13:19 WBC (3.8-10.6) k/uL RBC (3.80-5.40) m/uL Hgb (11.4-16.0) gm/dL Hct (34.0-46.0) % MCV (80.0-100.0) fL MCH (25.0-35.0) pg MCHC (31.0-37.0) g/dL RDW (11.5-15.5) % Plt Count (150-450) k/uL MPV Neutrophils % % Lymphocytes % % Monocytes % % Eosinophils % % Basophils % % Neutrophils # (1.3-7.7) k/uL Lymphocytes # (1.0-4.8) k/uL Monocytes # (0-1.0) k/uL Eosinophils # (0-0.7) k/uL Basophils # (0-0.2) k/uL PT (9.0-12.0) sec INR (<1.2) APTT (22.0-30.0) sec Sodium (137-145) mmol/L Potassium (3.5-5.1) mmol/L Chloride (98-107) mmol/L Carbon Dioxide (22-30) mmol/L Anion Gap mmol/L BUN (7-17) mg/dL Creatinine (0.52-1.04) mg/dL Est GFR (CKD-EPI)AfAm (>60 ml/min/1.73 sqM) Est GFR (CKD-EPI)NonAf (>60 ml/min/1.73 sqM) Glucose (74-99) mg/dL Plasma Lactic Acid Nikolay 1.5 (0.7-2.0) mmol/L Calcium (8.4-10.2) mg/dL Magnesium (1.6-2.3) mg/dL Total Bilirubin (0.2-1.3) mg/dL AST (14-36) U/L ALT (4-34) U/L Alkaline Phosphatase (38-126) U/L Creatine Kinase (30-135) U/L Troponin I <0.012 (0.000-0.034) ng/mL Total Protein (6.3-8.2) g/dL Albumin (3.5-5.0) g/dL Urine Color Light Yellow Urine Appearance Clear (Clear) Urine pH 6.5 (5.0-8.0) Ur Specific [place] 1.005 (1.001-1.035) Urine Protein Negative (Negative) Urine Glucose (UA) Negative (Negative) Urine Ketones Negative (Negative) Urine Blood Negative (Negative) Urine Nitrite Negative (Negative) Urine Bilirubin Negative (Negative) Urine Urobilinogen <2.0 (<2.0) mg/dL Ur Leukocyte Esterase Large H (Negative) Urine RBC 10 H (0-5) /hpf Urine WBC 46 H (0-5) /hpf Ur Squamous Epith Cells <1 (0-4) /hpf Urine Bacteria Rare H (None) /hpf Disposition Clinical Impression: Urinary tract infection, Ataxia Disposition: ADMITTED IP TO THIS HOSP Is patient prescribed a controlled substance at d/c from ED?: No Referrals: Rick Rudd DO [Primary Care Provider] - 1-2 days Decision Time: 14:23
[2020-05-06 12:24] LABS: Basophils # (A) 0.1 k/uL (0-0.2); Basophils % (A) 1 %; Eosinophils # (A) 0.7 k/uL (0-0.7); Eosinophils % (A) 9 %; HCT 33.4 % (34.0-46.0); HGB 11.2 gm/dL (11.4-16.0); Lymphocytes # (A) 1.6 k/uL (1.0-4.8); Lymphocytes % (A) 21 %; MCH 31.9 pg (25.0-35.0); MCHC 33.4 g/dL (31.0-37.0); MCV 95.4 fL (80.0-100.0); Mean Platelet Volume 8.5; Monocytes # (A) 0.3 k/uL (0-1.0); Monocytes % (A) 5 %; Neutrophils # (A) 4.7 k/uL (1.3-7.7); Neutrophils % (A) 63 %; Platelet Count 203 k/uL (150-450); RDW 13.3 % (11.5-15.5); WBC 7.6 k/uL (3.8-10.6)
[2020-05-06 12:35] LABS: Albumin 3.5 g/dL (3.5-5.0); Calcium 9.3 mg/dL (8.4-10.2); Magnesium 1.8 mg/dL (1.6-2.3); Potassium 3.2 mmol/L (3.5-5.1); Total Bilirubin 0.5 mg/dL (0.2-1.3); Total Protein 6.2 g/dL (6.3-8.2)
[2020-05-06 12:41] LABS: INR 0.9 (<1.2); Prothrombin Time 10.2 sec (9.0-12.0)
[2020-05-06 12:57] LABS: Partial Thromboplastin Time 20.1 sec (22.0-30.0)
--- NOTE | 2020-05-06 13:11 | XR ---
EXAMINATION TYPE: XR chest 2V DATE OF EXAM: 05/06/2020 COMPARISON: 02/09/2020 INDICATION: Weakness dehydration TECHNIQUE: Frontal and lateral views of the chest are obtained. FINDINGS: The heart size is normal. The pulmonary vasculature is normal. The lungs are clear. IMPRESSION: 1. No acute pulmonary process.
[2020-05-06 13:55] LABS: Appearance,Urine Clear (Clear); Bacteria,Urine Rare /hpf; Bilirubin,Urine Negative (Negative); Blood,Urine Negative (Negative); Color,Urine Light Yellow; Glucose,Urine (UA) Negative (Negative); Ketones,Urine Negative (Negative); Leukocyte Esterase,Urine Large (Negative); Nitrite,Urine Negative (Negative); PH, Urine 6.5 (5.0-8.0); Protein,Urine Negative (Negative); RBC,Urine 10 /hpf (0-5); Specific Gravity,Urine 1.005 (1.001-1.035); Squamous Epithelial Cell,Urine <1 /hpf (0-4); Urobilinogen,Urine <2.0 mg/dL (<2.0); WBC,Urine 46 /hpf (0-5)
[2020-05-06] MEDS ORDERED: POTASSIUM CHLORIDE ER 20 MEQ TAB.ER PO STA (14:00)
[2020-05-06] MEDS ORDERED: NALOXONE 0.4 MG/ML 1 ML VIAL IV PRN (14:24)
[2020-05-06] MEDS ORDERED: MIDODRINE 5 MG TAB PO PRN (14:28)
[2020-05-06] MEDS: SODIUM CHLORIDE 0.9% 1,000 ML IV SCH (14:56)
[2020-05-06] MEDS ORDERED: ALPRAZolam 0.25 MG TAB PO PRN (17:44)
[2020-05-06] MEDS: CHOLECALCIFEROL 25 MCG (1000 IU) TABLET PO SCH (17:51)
[2020-05-06] MEDS: CARBIDOPA-LEVODOPA 25-100 MG 1 EACH TAB PO SCH ×2 (17:51→23:37)
[2020-05-06] MEDS: TOPIRAMATE 25 MG TAB PO SCH (21:06)
[2020-05-06] MEDS: DOCUSATE 100 MG CAP PO SCH (21:06)
[2020-05-06] MEDS: ASPIRIN 81 MG PO SCH (23:37)
[2020-05-06] MEDS: HEPARIN SODIUM,PORCINE 5,000 UNIT/ML 1 ML VIAL SQ SCH (23:46)
--- NOTE | 2020-05-06 23:52 | P.HPIM ---
History of Present Illness This is a pleasant 80 years old female with past medical history of Parkinson and tremor, anxiety, she is patient of Dr. Rudd. She has multiple admissions over the last 4 months at a rate of once a month . Presents today because of weakness and dehydration. Patient was obtained with the help of a daughter at bedside who provided most of the history. Patient's daughter states that she has been discharged from the hospital about one month ago for UTI and she was doing well with physical therapy the last week where she started having progressive shakiness and more tremor in her both upper extremity and it and starts feeling more weak every day to the degree that over the last 2 days she could not stand up on her on and they have to catch her up from the ground when she went down. She got extremely weak and dyspneic with exertion She denies dysuria or urgency but says that she increased frequency of urination almost every hour. No suprapubic tenderness or fever or chest pain or dyspnea. No nausea vomiting or abdominal pain or diarrhea. No headache or weakness or numbness or slurred speech. She used to smoke 1 pack per day until recently, no alcohol or illicit drugs Vitas looks stable and patient is afebrile labs including CBC, INR, liver enzymes are unremarkable, basic metabolic panel showing potassium 3.2 and slightly elevated creatinine 1.1 Urinalysis is showing large leukocyte esterase with urine WBC elevated at 46. Its similar to her abnormal UA found on last February and March Last urine culture on the system of from last year showed no growth. In the emergency room she received ceftriaxone and 1 L of normal saline then continued at 75 mL/h Review of Systems CONSTITUTIONAL: No fever, no malaise, no fatigue. HEENT: No recent visual problems or hearing problems. Denied any sore throat. CARDIOVASCULAR: No orthopnea, PND, no palpitations, no syncope. PULMONARY: No shortness of breath, no cough, no hemoptysis. GASTROINTESTINAL: No diarrhea, no nausea, no vomiting, no abdominal pain. Normoactive bowel sounds. NEUROLOGICAL: No headaches, no weakness, no numbness. HEMATOLOGICAL: Denies any bleeding or petechiae. GENITOURINARY: Denies any burning micturition, frequency, or urgency. MUSCULOSKELETAL/RHEUMATOLOGICAL: Denies any joint pain, swelling, or any muscle pain. ENDOCRINE: Denies any polyuria or polydipsia. 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 Past Anesthesia/Blood Transfusion Reactions: No Reported Reaction Additional Past Anesthesia/Blood Transfusion Reaction / Comment(s): no hx blood transfusion Past Psychological History: Anxiety Smoking Status: Former smoker Past Alcohol Use History: None Reported Past Drug Use History: None Reported - Past Family History Brother(s) Family Medical History: Cancer Additional Family Medical History / Comment(s): severe tremor in 2 siblings Sister(s) Family Medical History: Cancer Daughter(s) Family Medical History: Cancer Mother Family Medical History: No Reported History Father Family Medical History: Myocardial Infarction ([place]) Medications and Allergies Home Medications Medication Instructions Recorded Confirmed Type Aspirin [Adult Low Dose Aspirin EC] 81 mg PO HS@2300 11/30/19 05/06/20 History ALPRAZolam [Xanax] 0.25 mg PO BID@0800,1999 PRN 05/06/20 05/06/20 History Amantadine 100mg Tablet 50 mg PO BID@0800,199905/06/20 05/06/20 History Carbidopa-Levodopa 25-100 mg 1 tab PO TID@0800,1600,2300 05/06/20 05/06/20 History [Sinemet 25-100 mg] Cholecalciferol (Vitamin D3) 250 mcg PO DAILY@1600 05/06/20 05/06/20 History [Vitamin D3 (5000 Iu)] Docusate [Colace] 100 mg PO BID@0800,199905/06/20 05/06/20 History Magnesium 250 mg PO DAILY@1600 05/06/20 05/06/20 History Midodrine HCl [ProAmatine] 5 mg PO TID@0800,1600,230 PRN 05/06/20 05/06/20 History Topiramate [Topamax] 50 mg PO BID@0800,199905/06/20 05/06/20 History Allergies Allergy/AdvReac Type Severity Reaction Status Date / Time Penicillins Allergy Rash/Hives Verified 05/06/20 13:25 Physical Exam Vitals: Vital Signs Temp Pulse Resp BP Pulse Ox 05/06/20 11:57 98.1 F 73 16 132/89 98 05/06/20 11:51 98.1 F 76 16 132/88 95 Intake and Output 05/05/20 05/06/20 05/06/20 22:59 06:59 14:59 Other: Weight 52.163 kg -GENERAL: The patient is alert and oriented x3, not in any acute distress. Well developed, well nourished. Generally weak HEENT: Pupils are round and equally reacting to light. EOMI. No scleral icterus. No conjunctival pallor. Normocephalic, atraumatic. No pharyngeal erythema. No thyromegaly. CARDIOVASCULAR: S1 and S2 present. No murmurs, rubs, or gallops. PULMONARY: Chest is clear to auscultation, no wheezing or crackles. ABDOMEN: Soft, nontender, nondistended, normoactive bowel sounds. No palpable organomegaly. MUSCULOSKELETAL: No joint swelling or deformity. EXTREMITIES: No cyanosis, clubbing, or pedal edema. -NEUROLOGICAL: Gross neurological examination did not reveal any focal deficits. Exaggerated essential tremor in both upper extremity and head in speech (chronic) SKIN: No rashes. No petechiae Results CBC & Chem 7: 05/06/20 12:15 05/06/20 12:15 Labs: Abnormal Lab Results - Last 24 Hours (Table) 05/06/20 05/06/20 05/06/20 Range/Units 12:15 12:15 12:15 RBC 3.50 L (3.80-5.40) m/uL Hgb 11.2 L (11.4-16.0) gm/dL Hct 33.4 L (34.0-46.0) % APTT 20.1 L (22.0-30.0) sec Potassium 3.2 L (3.5-5.1) mmol/L Chloride 109 H (98-107) mmol/L Carbon Dioxide 21 L (22-30) mmol/L Creatinine 1.12 H (0.52-1.04) mg/dL Total Protein 6.2 L (6.3-8.2) g/dL Ur Leukocyte Esterase (Negative) Urine RBC (0-5) /hpf Urine WBC (0-5) /hpf Urine Bacteria (None) /hpf 05/06/20 Range/Units 13:19 RBC (3.80-5.40) m/uL Hgb (11.4-16.0) gm/dL Hct (34.0-46.0) % APTT (22.0-30.0) sec Potassium (3.5-5.1) mmol/L Chloride (98-107) mmol/L Carbon Dioxide (22-30) mmol/L Creatinine (0.52-1.04) mg/dL Total Protein (6.3-8.2) g/dL Ur Leukocyte Esterase Large H (Negative) Urine RBC 10 H (0-5) /hpf Urine WBC 46 H (0-5) /hpf Urine Bacteria Rare H (None) /hpf Assessment and Plan Assessment: Acute urinary tract infection, recurrent UTI Elements of mild acute kidney injury Dehydration History of Parkinson disease Exaggerated essential tremor Anxiety, not active tissue Previous smoker Plan: This is a pleasant 80 years old female who presents with weakness and UTI. Continue with ceftriaxone, IV fluids gently, follow-up urine culture. Physical therapy evaluation Check a renal ultrasound and consult infectious disease Also we will check hemoglobin A1c, B12, TSH Labs and medication were reviewed.. Continue same treatment. Continue with symptomatic treatment. Resume home medication. Monitor lytes and vitals. DVT and GI prophylaxis. Further recommendations depends on the clinical course of the patient DVT prophylaxis: Subcutaneous heparin GI Prophylaxis: Pepcid PT/OT: Pending Prognosis is guarded
--- NOTE | 2020-05-07 06:31 | CONS ---
CONSULTATION DATE OF SERVICE: 05/06/2020 REASON FOR CONSULTATION: Urinary tract infection. HISTORY OF PRESENT ILLNESS: The patient is a 80-year-old female who was brought into the ER by the daughter with concern for generalized weakness, fatigue and no energy. The patient's symptoms have been going on for the last few days with concern for possible dehydration. The patient has been brought into the hospital. There is history of fever at home x1. The patient denies having any . No URI symptoms. No chest pain, shortness of breath or cough. No nausea or vomiting. No abdominal pain. No diarrhea. Patient on presentation to the hospital was afebrile. The patient did have a normal white count. She was noticed to have a positive UA with large leukocyte esterase, 46 WBC. Velazquez PCR was negative. Urine cultures are currently pending. The patient did have a chest x-ray that was reported negative for any pneumonia. The patient was started on Rocephin and admitted to the hospital. Infectious Disease was consulted for further management of antibiotic therapy. REVIEW OF SYSTEMS: Positive points have been mentioned in HPI. Rest of systems are negative. PAST MEDICAL HISTORY: Parkinson disease, irritable bowel syndrome and left rotator cuff tear. Also history of anxiety. PAST SURGICAL HISTORY: Cholecystectomy, left rotator cuff repair, tumor removed from the right arm. SOCIAL HISTORY: Remote history of smoking. No drinking or drug use. FAMILY HISTORY: No pertinent findings noticed. ALLERGIES: PENICILLIN with a rash. No history of anaphylaxis. MEDICATIONS: The patient is currently on Xanax, aspirin, Sinemet, Rocephin 1 g daily. She is on vitamin D3, Colace, ProAmatine, Narcan, IV fluid and Topamax. PHYSICAL EXAMINATION: Her blood pressure is 165/60 with a pulse of 87, temperature 97.6. She is 96% on room air. GENERAL DESCRIPTION: The patient is an elderly female lying in bed in no distress. No tachypnea or accessory muscles of respiration use. HEENT: Examination shows slight pallor. No scleral icterus. Oral mucous membrane is dry. NECK: Trachea is central, no thyromegaly. LUNGS: Unlabored breathing, clear to auscultation. No wheeze or crackle. HEART: S1, S2. Regular rate and rhythm. ABDOMEN: Soft, no tenderness. No guarding or rigidity. EXTREMITIES: No edema of the feet. SKIN EXAMINATION: No rash or mass palpable. NEUROLOGIC: The patient is awake, alert, oriented times three. Mood and affect normal. LABS: Hemoglobin 9.2, white count 7.6, BUN of 9, creatinine 1.12. DIAGNOSTIC IMPRESSION: Patient presented to hospital with generalized weakness, confusion in this patient who did have a positive urinalysis with concern for symptomatic urinary tract infection. Has no other obvious focus of infection. Likely from gram-negative pathogen. Patient with PENICILLIN ALLERGY that will limit the number of antibiotics safe to use. PLAN: 1. Rocephin 1 g IV piggyback daily. 2. Gentle IV fluid. 3. We will follow on clinical condition and culture to further adjust medication if needed. Thank you for this consultation. Will follow this patient along with you. MMODL / IJN: [id number] /
--- NOTE | 2020-05-07 07:52 | US ---
EXAMINATION TYPE: US renals and bladder DATE OF EXAM: 05/07/2020 COMPARISON: NONE CLINICAL HISTORY: 80-year-old female recurrent UTI TECHNIQUE: Multiple sonographic images of the kidneys and bladder are obtained. FINDINGS: EXAM MEASUREMENTS: Right Kidney: 10.7 x 5.0 x 5.4 cm Left Kidney: 10.7 x 5.8 x 5.2 cm Right Kidney: Midpole parapelvic and lower pole cysts are noted, largest measuring 2.3 x 2.4 x 2.5cm. No hydronephrosis. Left Kidney: Upper pole cyst measuring 5.6 x 4.4 x 3.0cm there is no hydronephrosis. Bladder: appears wnl Bilateral Jets seen: no IMPRESSION: 1. No hydronephrosis. 2. Bilateral renal cysts, largest measuring 5.6 cm on the left.
[2020-05-07] MEDS: CARBIDOPA-LEVODOPA 25-100 MG 1 EACH TAB PO SCH ×3 (08:00→20:56)
[2020-05-07] MEDS: DOCUSATE 100 MG CAP PO SCH ×2 (08:00→20:56)
[2020-05-07] MEDS: TOPIRAMATE 25 MG TAB PO SCH ×2 (08:01→21:02)
[2020-05-07] MEDS: FAMOTIDINE 20 MG/2 ML VIAL IV SCH ×2 (08:02→20:55)
[2020-05-07] MEDS: HEPARIN SODIUM,PORCINE 5,000 UNIT/ML 1 ML VIAL SQ SCH ×2 (08:02→20:55)
[2020-05-07 10:57] LABS: Folate, Serum 9.4 ng/mL
[2020-05-07] MEDS: SODIUM CHLORIDE 0.9% 1,000 ML IV SCH (11:54)
--- NOTE | 2020-05-07 11:55 | P.PN ---
Subjective This is a pleasant 80 years old female with past medical history of Parkinson and tremor, anxiety, she is patient of Dr. Rudd. She has multiple admissions over the last 4 months at a rate of once a month . Presents today because of weakness and dehydration. Patient was obtained with the help of a daughter at bedside who provided most of the history. Patient's daughter states that she has been discharged from the hospital about one month ago for UTI and she was doing well with physical therapy the last week where she started having progres sive shakiness and more tremor in her both upper extremity and it and starts feeling more weak every day to the degree that over the last 2 days she could not stand up on her on and they have to catch her up from the ground when she went down. She got extremely weak and dyspneic with exertion She denies dysuria or urgency but says that she increased frequency of urination almost every hour. No suprapubic tenderness or fever or chest pain or dyspnea. No nausea vomiting or abdominal pain or diarrhea. No headache or weakness or numbness or slurred speech. She used to smoke 1 pack per day until recently, no alcohol or illicit drugs Vitas looks stable and patient is afebrile labs including CBC, INR, liver enzymes are unremarkable, basic metabolic panel showing potassium 3.2 and slightly elevated creatinine 1.1 Urinalysis is showing large leukocyte esterase with urine WBC elevated at 46. Its similar to her abnormal UA found on last February and March Last urine culture on the system of from last year showed no growth. In the emergency room she received ceftriaxone and 1 L of normal saline then continued at 75 mL/h 05/07/2020 Patient sitting in chair awake,-significant tremor in her both upper extremities and upper part of the body. However she feels slightly better, slightly stronger and with the help of the staff she couldn't go to the bathroom today. She still have increased frequency of urination every 1 hour. Vitals are stable. BMP is pending as well as hemoglobin A1c and TSH. Her bladder scan showing uterine retention of about 360, Flomax is added. B12 is on the low side 276 and folate is normal at 9.4. We'll start the patient on vitamin B12 injection. Renal ultrasound showing no hydronephrosis ID input is appreciated and the recommend Rocephin Review of Systems CONSTITUTIONAL: No fever, no malaise, no fatigue. HEENT: No recent visual problems or hearing problems. Denied any sore throat. CARDIOVASCULAR: No orthopnea, PND, no palpitations, no syncope. PULMONARY: No shortness of breath, no cough, no hemoptysis. GASTROINTESTINAL: No diarrhea, no nausea, no vomiting, no abdominal pain. Normoactive bowel sounds. NEUROLOGICAL: No headaches, no weakness, no numbness. Active Medications Generic Name Dose Route Start Last Admin Trade Name Freq PRN Reason Stop Dose Admin Alprazolam 0.25 mg 05/06/20 17:44 05/06/20 23:37 Alprazolam 0.25 Mg Tab PO 0.25 mg HS PRN Administration Anxiety Aspirin 81 mg 05/06/20 23:00 05/06/20 23:37 Aspirin 81 Mg PO 81 mg HS@2300 NAOMY Administration Carbidopa/Levodopa 1 each 05/06/20 16:00 05/07/20 08:00 Carbidopa-Levodopa 25-100 Mg 1 Each Tab PO 1 each TID@0800,1600,2300 NAOMY Administration Cholecalciferol 250 mcg 05/06/20 16:00 05/06/20 17:51 Cholecalciferol 25 Mcg (1000 Iu) Tablet PO 250 mcg DAILY@1600 NAOMY Administration Docusate Sodium 100 mg 05/06/20 20:00 05/07/20 08:00 Docusate 100 Mg Cap PO 100 mg BID@0800,2000 NAOMY Administration Famotidine 20 mg 05/07/20 09:00 05/07/20 08:02 Famotidine 20 Mg/2 Ml Vial IV 20 mg Q12HR NAOMY Administration Heparin Sodium (Porcine) 5,000 unit 05/06/20 23:45 05/07/20 08:02 Heparin Sodium,Porcine 5,000 Unit/Ml 1 Ml Vial SQ 5,000 unit Q12HR NAOMY Administration Ceftriaxone Sodium 1 gm/ 50 mls @ 100 mls/hr 05/07/20 09:00 05/07/20 08:02 Sodium Chloride IVPB 100 mls/hr Q24HR NAOMY Administration Sodium Chloride 1,000 mls @ 50 mls/hr 05/06/20 14:30 05/06/20 14:56 Saline 0.9% IV 50 mls/hr .Q20H NAOMY Administration Midodrine 5 mg 05/06/20 14:28 Midodrine 5 Mg Tab PO TID@0800,1600,2300 PRN Blood Pressure - Low Naloxone HCl 0.2 mg 05/06/20 14:24 Naloxone 0.4 Mg/Ml 1 Ml Vial IV Q2M PRN Opioid Reversal Topiramate 50 mg 05/06/20 20:00 05/07/20 08:01 Topiramate 25 Mg Tab PO 50 mg BID@0800,2000 NAOMY Administration Objective - Vital Signs Vital signs: Vital Signs Temp 98.5 F 05/07/20 07:23 Pulse 78 05/07/20 08:00 Resp 18 05/07/20 08:00 BP 149/57 05/07/20 07:23 Pulse Ox 94 L 05/07/20 07:23 Intake & Output 05/06/20 05/07/20 05/07/20 18:59 06:59 18:59 Intake Total 300 Output Total 1150 Balance -850 Weight 52.163 kg Intake: Oral 300 Output: Urine 775 Post Void Residual 375 Other: Voiding Method Toilet - Labs CBC & Chem 7: 05/06/20 12:15 05/06/20 12:15 Labs: Abnormal Lab Results - Last 24 Hours (Table) 05/06/20 05/06/20 05/06/20 Range/Units 12:15 12:15 12:15 RBC 3.50 L (3.80-5.40) m/uL Hgb 11.2 L (11.4-16.0) gm/dL Hct 33.4 L (34.0-46.0) % APTT 20.1 L (22.0-30.0) sec Potassium 3.2 L (3.5-5.1) mmol/L Chloride 109 H (98-107) mmol/L Carbon Dioxide 21 L (22-30) mmol/L Creatinine 1.12 H (0.52-1.04) mg/dL Total Protein 6.2 L (6.3-8.2) g/dL Ur Leukocyte Esterase (Negative) Urine RBC (0-5) /hpf Urine WBC (0-5) /hpf Urine Bacteria (None) /hpf 05/06/20 Range/Units 13:19 RBC (3.80-5.40) m/uL Hgb (11.4-16.0) gm/dL Hct (34.0-46.0) % APTT (22.0-30.0) sec Potassium (3.5-5.1) mmol/L Chloride (98-107) mmol/L Carbon Dioxide (22-30) mmol/L Creatinine (0.52-1.04) mg/dL Total Protein (6.3-8.2) g/dL Ur Leukocyte Esterase Large H (Negative) Urine RBC 10 H (0-5) /hpf Urine WBC 46 H (0-5) /hpf Urine Bacteria Rare H (None) /hpf Microbiology - Last 24 Hours (Table) 05/06/20 13:19 Urine Culture - Preliminary Urine,Voided Assessment and Plan Assessment: Acute urinary tract infection, recurrent UTI Elements of mild acute kidney injury Dehydration Low vitamin B12 mild urinary retention Possible History of Parkinson disease Exaggerated essential tremor Anxiety, not active tissue Previous smoker Plan: This is a pleasant 80 years old female who presents with weakness and UTI. Continue with ceftriaxone, IV fluids gently, follow-up urine culture. Physical therapy evaluation Follow-up recommendation by infectious disease team Also we will check hemoglobin A1c, TSH Labs and medication were reviewed.. Continue same treatment. Continue with symptomatic treatment. Resume home medication. Monitor lytes and vitals. DVT and GI prophylaxis. Further recommendations depends on the clinical course of the patient DVT prophylaxis: Subcutaneous heparin GI Prophylaxis: Pepcid PT/OT: Pending Prognosis is guarded
[2020-05-07] MEDS: CYANOCOBALAMIN 1,000 MCG/ML 1 ML VIAL IM SCH (12:26)
[2020-05-07] MEDS: TAMSULOSIN 0.4 MG CAP.ER.24H PO SCH (12:26)
--- NOTE | 2020-05-07 14:48 | P.PN ---
Subjective Progress Note Date: 05/07/20 HISTORY OF PRESENT ILLNESS This is a 80-year-old female. She is seated treated for urinary tract infection currently on Rocephin 1 g IV piggyback daily. Patient initially presented with generalized weakness fatigue and no energy. At the time of this evaluation, patient denies having any chest pain, shortness of breath or cough. No nausea, vomiting or abdominal pain. No diarrhea. Urine culture is in progress. Patient has been afebrile, heart rate 64, blood pressure 126/61, pulse ox 97% on room air. PHYSICAL EXAMINATION Gen: This is a 80-year-old female. Patient is resting in a chair at the bedside and appears to be comfortable and in no acute distress. HEENT: Head is atraumatic, normocephalic. Pupils equal, round. Sclerae is anicteric. NECK: Supple. No JVD. LUNGS: Clear to auscultation. No wheezes or rhonchi. No intercostal retractions. HEART: Regular rate and rhythm. ABDOMEN: Soft. No masses. No tenderness. EXTREMITIES: No pedal edema. No calf tenderness. NEUROLOGICAL: Patient is awake, alert and oriented x3. ASSESSMENT Acute urinary tract infection PLAN Continue Rocephin 1 g IV piggyback daily Follow up on urine culture Further recommendations as patient progresses. The above dictated assessment and findings were discussed with Dr. Anderson. The impression and plan of care have been directed as dictated. Cassia Cedeño nurse practitioner acting as scribe for Dr. Anderson. Objective - Vital Signs Vital signs: Vital Signs Temp 98.5 F 05/07/20 07:23 Pulse 78 05/07/20 07:23 Resp 18 05/07/20 07:23 BP 149/57 05/07/20 07:23 Pulse Ox 94 L 05/07/20 07:23 Intake & Output 05/06/20 05/07/20 05/07/20 18:59 06:59 18:59 Intake Total 300 Output Total 1150 Balance -850 Weight 52.163 kg Intake: Oral 300 Output: Urine 775 Post Void Residual 375 - Labs CBC & Chem 7: 05/06/20 12:15 05/06/20 12:15 Labs: Abnormal Lab Results - Last 24 Hours (Table) 05/06/20 05/06/20 05/06/20 Range/Units 12:15 12:15 12:15 RBC 3.50 L (3.80-5.40) m/uL Hgb 11.2 L (11.4-16.0) gm/dL Hct 33.4 L (34.0-46.0) % APTT 20.1 L (22.0-30.0) sec Potassium 3.2 L (3.5-5.1) mmol/L Chloride 109 H (98-107) mmol/L Carbon Dioxide 21 L (22-30) mmol/L Creatinine 1.12 H (0.52-1.04) mg/dL Total Protein 6.2 L (6.3-8.2) g/dL Ur Leukocyte Esterase (Negative) Urine RBC (0-5) /hpf Urine WBC (0-5) /hpf Urine Bacteria (None) /hpf 05/06/20 Range/Units 13:19 RBC (3.80-5.40) m/uL Hgb (11.4-16.0) gm/dL Hct (34.0-46.0) % APTT (22.0-30.0) sec Potassium (3.5-5.1) mmol/L Chloride (98-107) mmol/L Carbon Dioxide (22-30) mmol/L Creatinine (0.52-1.04) mg/dL Total Protein (6.3-8.2) g/dL Ur Leukocyte Esterase Large H (Negative) Urine RBC 10 H (0-5) /hpf Urine WBC 46 H (0-5) /hpf Urine Bacteria Rare H (None) /hpf Microbiology - Last 24 Hours (Table) 05/06/20 13:19 Urine Culture - Preliminary Urine,Voided
[2020-05-07 15:30] LABS: African American GFR (CKD) 62.1 (60.0-200.0); Anion Gap 9.7 mmol/L (4.00-12.00); Calcium 8.3 mg/dL (8.7-10.3); Carbon Dioxide 21.3 mmol/L (21.6-31.8); Non-African American GFR(CKD) 53.5 (60.0-200.0); Potassium 3.3 mmol/L (3.5-5.5)
[2020-05-07] MEDS: CHOLECALCIFEROL 25 MCG (1000 IU) TABLET PO SCH (16:14)
[2020-05-07 18:14] LABS: Hemoglobin A1C 5.1 % (4.0-6.0)
[2020-05-07] MEDS ORDERED: Potassium Replacement Protocol 1 EACH MISC MISCELLANE PRN (19:39)
[2020-05-07] MEDS: ASPIRIN 81 MG PO SCH (20:56)
[2020-05-08] MEDS ORDERED: Potassium Replacement Protocol 1 EACH MISC MISCELLANE PRN (01:16)
[2020-05-08] MEDS: POTASSIUM CHLORIDE ER 20 MEQ TAB.ER PO SCH ×2 (02:01→03:18)
[2020-05-08] MEDS: SODIUM CHLORIDE 0.9% 1,000 ML IV SCH (06:17)
[2020-05-08] MEDS: HEPARIN SODIUM,PORCINE 5,000 UNIT/ML 1 ML VIAL SQ SCH (08:42)
[2020-05-08] MEDS: DOCUSATE 100 MG CAP PO SCH (08:42)
[2020-05-08] MEDS: CARBIDOPA-LEVODOPA 25-100 MG 1 EACH TAB PO SCH (08:42)
[2020-05-08] MEDS: CYANOCOBALAMIN 1,000 MCG/ML 1 ML VIAL IM SCH (08:43)
[2020-05-08] MEDS: TOPIRAMATE 25 MG TAB PO SCH (08:43)
[2020-05-08] MEDS: TAMSULOSIN 0.4 MG CAP.ER.24H PO SCH (08:43)
[2020-05-08] MEDS: FAMOTIDINE 20 MG/2 ML VIAL IV SCH (08:43)
[2020-05-08 08:49] VITALS: BP 145/52; PULSE 72; RESP 18; TEMP 98
[2020-05-08] MEDS ORDERED: Magnesium Replacement Protocol 1 EACH MISC MISCELLANE PRN (08:55)
--- NOTE | 2020-05-08 09:01 | P.DS ---
Providers Date of admission: 05/06/20 14:25 Expected date of discharge: 05/08/20 Attending physician: Rick Rudd Consults: 05/06/20 14:28 Consult Physician Urgent Consulting Provider: Fritz Anderson Consult Reason/Comments: recurrent UTI Do you want consulting provider notified?: Yes 05/07/20 19:36 Consult Physician Routine Consulting Provider: Kareem Murguia Consult Reason/Comments: b/l renal cyst with recurrent UTI Do you want consulting provider notified?: Yes Primary care physician: Rick Rudd Hospital Course: Final diagnoses: Possible acute UTI, final urine culture negative urinary retention, Flomax initiated Mild acute renal failure, improved Hypokalemia, mild, receiving supplementation Anxiety Former nicotine dependence IBS Parkinson's disease, reports diagnosed around 01/24. Hospital course: This is 80-year-old female with multiple medical issues including general malaise weakness, fatigue, possible acute UTI. Evaluated by infectious disease. Maintained on Rocephin. Final urine culture negative. Afebrile. Evaluated by PT recommending home with home care,/subacute rehab with 24/ care. Per case management/ social work patient declining subacute rehab. Patient will be discharged home today in a stable condition with guarded prognosis pending final DC recommendations/clearance from infectious disease. The impression and plan of care has been dictated as directed. : I performed a history and examination of this patient, discussed the same with the dictator. I agree with the dictator's note ,documented as a scribe. Any additional findings or plans will be noted. Patient Condition at Discharge: Stable Plan - Discharge Summary New Discharge Prescriptions: No Action Aspirin [Adult Low Dose Aspirin EC] 81 mg PO HS@2300 Amantadine 100mg Tablet 50 mg PO BID@0800,1999 ALPRAZolam [Xanax] 0.25 mg PO BID@0800,2000 PRN PRN Reason: Anxiety Carbidopa-Levodopa 25-100 mg [Sinemet 25-100 mg] 1 tab PO TID@0800,1600,2300 Cholecalciferol (Vitamin D3) [Vitamin D3 (5000 Iu)] 250 mcg PO DAILY@1600 Docusate [Colace] 100 mg PO BID@0800,2000 Magnesium 250 mg PO DAILY@1600 Midodrine HCl [ProAmatine] 5 mg PO TID@0800,1600,2300 PRN PRN Reason: Blood Pressure - Low Topiramate [Topamax] 50 mg PO BID@799,1999 Discharge Medication List Aspirin [Adult Low Dose Aspirin EC] 81 mg PO HS@229911/30/19 [History] ALPRAZolam [Xanax] 0.25 mg PO BID@799,1999 PRN 05/06/20 [History] Amantadine 100mg Tablet 50 mg PO BID@799,199905/06/20 [History] Carbidopa-Levodopa 25-100 mg [Sinemet 25-100 mg] 1 tab PO TID@0800,1600,229905/06/20 [History] Cholecalciferol (Vitamin D3) [Vitamin D3 (5000 Iu)] 250 mcg PO DAILY@159905/06/20 [History] Docusate [Colace] 100 mg PO BID@799,199905/06/20 [History] Magnesium 250 mg PO DAILY@159905/06/20 [History] Midodrine HCl [ProAmatine] 5 mg PO TID@0800,1600,2299 PRN 05/06/20 [History] Topiramate [Topamax] 50 mg PO BID@799,199905/06/20 [History] Follow up Appointment(s)/Referral(s): Rick Rudd DO [Primary Care Provider] - 1-2 days
--- NOTE | 2020-05-08 13:54 | P.PN ---
Progress Note - Text Progress Note Date: 05/08/20 HISTORY OF PRESENT ILLNESS This is a 80-year-old female treated for urinary tract infection with Rocephin 1 g IV piggyback daily. Patient initially presented with generalized weakness fatigue and no energy. At the time of this evaluation, patient denies having any chest pain, shortness of breath or cough. No nausea, vomiting or abdominal pain. No diarrhea. Urine culture came back negative. Patient is afebrile, heart rate 60, blood pressure 120/60, pulse ox 97% on room air. PHYSICAL EXAMINATION Gen: This is a 80-year-old female. Patient is resting in a chair at the bedside and appears to be comfortable and in no acute distress. HEENT: Head is atraumatic, normocephalic. Pupils equal, round. Sclerae is anicteric. NECK: Supple. No JVD. LUNGS: Clear to auscultation. No wheezes or rhonchi. No intercostal retractions. HEART: Regular rate and rhythm. ABDOMEN: Soft. No masses. No tenderness. EXTREMITIES: No pedal edema. No calf tenderness. NEUROLOGICAL: Patient is awake, alert and oriented x3. ASSESSMENT Acute urinary tract infection PLAN : to finish therapy with oral ceftin 500mg bid x 3 days
[2020-05-09 01:12] LABS: African American GFR (CKD) 62.1 (60.0-200.0); Anion Gap 8.7 mmol/L (4.00-12.00); Calcium 8.8 mg/dL (8.7-10.3); Carbon Dioxide 22.3 mmol/L (21.6-31.8); Non-African American GFR(CKD) 53.5 (60.0-200.0); Potassium 3.8 mmol/L (3.5-5.5)
== END 2020-05-08 12:15 ==
LOC: EC 11:50 → 4SSUR 14:25
PROVIDERS: ADMIT Family Medicine; ATTEND Family Medicine
DX: R33.9 Retention of urine, unspecified (principal); N17.9 Acute kidney failure, unspecified; E87.6 Hypokalemia; F41.9 Anxiety disorder, unspecified; K58.9 Irritable bowel syndrome, unspecified; G20 Parkinson's disease; R53.1 Weakness; E86.0 Dehydration; N28.1 Cyst of kidney, acquired; G25.0 Essential tremor; Z87.891 Personal history of nicotine dependence; Z88.0 Allergy status to penicillin; Z20.822 Contact with and (suspected) exposure to COVID-19; Z79.899 Other long term (current) drug therapy; Z79.82 Long term (current) use of aspirin; Z82.49 Family history of ischemic heart disease and other diseases of the circulatory system; Z87.440 Personal history of urinary (tract) infections
CPT/HCPCS: 96376; 96365; 96366; 96372 ×3; 96375; 96361; 99285; 36415; 93005; 97162; 97535; 97166; 80053; 80048 ×2; 84443; 82607; 82550; 82746; 83605; 83735 ×2; 84484; 85025; 85610; 85730; 81001; 87086; 83036; 87635; 71046; 76770; G0378 ×3; J3420 ×2; J1644 ×3; J0696 ×2

== ENCOUNTER → 2020-05-27 | Outpatient (CLI) | payer MEDICARE, BC ==
--- NOTE | 2020-05-27 17:21 | EEG ---
ELECTROENCEPHALOGRAM REPORT DATE OF SERVICE: 05/27/2020. PREAMBLE: This is a 80-year-old female who has been diagnosed with Parkinson's disease. She has been falling a lot. This study is performed to evaluate for any epileptiform activity, possible syncope. Medication list not available. EEG FINDINGS: This is a 21-channel routine EEG recording in a patient utilizing 10/20 international system with referential and bipolar montages. Background consists of well developed, well regulated, mixed frequencies of alpha with some low-voltage fast frequency beta activity. Background seems to be reactive to eye opening and closing. Photic driving response was not clearly seen. Mild drowsiness was seen, but deeper stages of sleep were not attained. No focal or generalized epileptiform activity was seen. EKG channel showed no obvious arrhythmia. IMPRESSION: This is a normal awake and drowsy EEG. No focal, lateralized or epileptiform activity was seen. MMODL / IJN: [id number] /
== END ==
LOC: NEUROMAIN 07:50
PROVIDERS: ATTEND Psychiatry & Neurology Neurology
DX: I95.1 Orthostatic hypotension (principal); G20 Parkinson's disease; G25.0 Essential tremor
CPT/HCPCS: 95816

== ENCOUNTER → 2021-01-26 | Outpatient (CLI) | payer MEDICARE, BC ==
--- NOTE | 2021-01-26 23:00 | XR ---
EXAMINATION TYPE: XR chest 2V DATE OF EXAM: 01/26/2021 COMPARISON: 05/06/2020 HISTORY: 80-year-old female pain, left rib injury after fall TECHNIQUE: Frontal and lateral views FINDINGS: Heart normal size. Mild tortuosity/ectasia of the thoracic aorta. Mild interstitial prominence and hy perinflation. No consolidation, pneumothorax, or pleural effusion. IMPRESSION: Possible underlying COPD. Otherwise, no definite acute process.
== END | disposition home or self-care (01) ==
LOC: RADXRMAIN 12:39
DX: S29.9XXA Unspecified injury of thorax, initial encounter (principal); R07.81 Pleurodynia; W19.XXXA Unspecified fall, initial encounter
CPT/HCPCS: 71046

== ENCOUNTER → 2021-04-07 | Outpatient (CLI) | payer MEDICARE, BC ==
--- NOTE | 2021-04-07 08:30 | XR ---
EXAMINATION TYPE: XR abdomen 2V DATE OF EXAM: 04/07/2021 CLINICAL HISTORY: Bilateral flank pain and UTI. TECHNIQUE: Supine and upright views of the abdomen are obtained. COMPARISON: None. FINDINGS: Scattered gas is seen in non-distended small bowel loops. Gas and fecal material is seen in non-distended colon. Cholecystectomy clips are present. No free air. Visualized lung bases are arnie ar. A few left-sided pelvic phleboliths. Osseous structures are intact. IMPRESSION: Overall nonobstructive bowel gas pattern.
== END | disposition home or self-care (01) ==
LOC: RADXRMAIN 07:31
PROVIDERS: ATTEND Nurse Practitioner Family
DX: N39.0 Urinary tract infection, site not specified (principal); R10.9 Unspecified abdominal pain
CPT/HCPCS: 74019

== ENCOUNTER → 2021-05-04 | Outpatient (CLI) | payer MEDICARE, BC ==
--- NOTE | 2021-05-05 06:51 | CT ---
EXAMINATION TYPE: CT abdomen pelvis wo con DATE OF EXAM: 05/04/2021 HISTORY: MID ABD PAIN X4 WEEKS CT DLP: 276.4 mGycm. Automated Exposure Control for Dose Reduction was Utilized. TECHNIQUE: CT scan of the abdomen and pelvis is performed with oral but without IV contrast. COMPARISON: Renal ultrasound May 07, 2020 FINDINGS: Within the limitations of a non-contrast study, the following observations are made. LUNG BASES: Mild left basilar linear scarring. LIVER/GB: Cholecystectomy clips. PANCREAS: No significant abnormality is seen. SPLEEN: No significant abnormality is seen. ADRENALS: No significant abnormality is seen. KIDNEYS: Exophytic 3.3 cm thin-walled cyst posteriorly upper pole left kidney axial image 17. There i s 1.5 cm benign thin-walled cyst laterally mid pole of the left kidney axial image 27. Vague hypodens e near 3.0 cm area right kidney posteriorly lower pole level axial image 41 for reference favors fredis gn thin-walled cyst, Hounsfield units average near 19. Findings likely correlate with largest thin-wa lled cyst seen on ultrasound measuring 2.6 cm long axis. BOWEL: Oral contrast reaches proximal transverse colon level. No suspicious small or large bowel dila tation. GENITAL ORGANS: Anteverted uterus. LYMPH NODES: No greater than 1cm abdominal or pelvic lymph nodes are appreciated. OSSEOUS STRUCTURES: Moderate axial joint space loss both hips. Moderate disc space narrowing with vac uum disc phenomenon L4-L5 and L5-S1 levels. Osseous structures are demineralized. OTHER: Mild to moderate calcified plaque of the aorta extends into branch vessels. IMPRESSION: No bowel obstruction. No acute findings are evident.
== END | disposition home or self-care (01) ==
LOC: RADCTMAIN 16:07
PROVIDERS: ATTEND Family Medicine
DX: R10.9 Unspecified abdominal pain (principal)
CPT/HCPCS: 74176

== ENCOUNTER → 2021-12-07 | Outpatient (CLI) | payer MEDICARE, BC ==
--- NOTE | 2021-12-07 13:42 | XR ---
EXAMINATION TYPE: XR knee complete RT DATE OF EXAM: 12/07/2021 1:01 PM INDICATION: Patient age:Female; 81 years old; Reason for study: R52 R knee pain; COMPARISON: None. TECHNIQUE: The right knee(s) was examined in 3 projections. Frontal, lateral and oblique. FINDINGS: Diffuse osseous demineralization. Mild osteophyte formation of the tibial plateau and pat ketan. No evidence of any acute osseous pathology, joint space narrowing, soft tissue swelling. There is a joint effusion present. IMPRESSION: 1. No acute osseous pathology. 2. Mild tricompartmental osteoarthritic changes with small joint effusion. 3. Osseous demineralization.
== END | disposition home or self-care (01) ==
LOC: RADXRMAIN 12:47
PROVIDERS: ATTEND Family Medicine
DX: M17.11 Unilateral primary osteoarthritis, right knee (principal)

== ENCOUNTER → 2022-10-01 | Outpatient (CLI) | payer MEDICARE, BC ==
--- NOTE | 2022-10-01 18:59 | XR ---
EXAMINATION TYPE: XR chest 2V DATE OF EXAM: 10/01/2022 4:14 PM COMPARISON: Chest radiographs from 09/23/2022 TECHNIQUE: XR chest 2V Frontal and lateral views of the chest. CLINICAL INDICATION:Female, 82 years old with history of R07.9 CHEST PAIN; FINDINGS: Lungs/Pleura: Prominent interstitial lung markings are seen scattered throughout the lungs. No eviden ce of focal consolidation, pneumothorax or pleural effusion. Pulmonary vascularity: Unremarkable. Heart/mediastinum: Cardiomediastinal silhouette is unremarkable. Musculoskeletal: No acute osseous pathology. IMPRESSION: 1. Chronic changes without acute pulmonary process. No significant change from prior. 2. COPD changes.
--- NOTE | 2022-10-01 19:38 | XR ---
EXAMINATION TYPE: XR ribs RT DATE OF EXAM: 10/01/2022 4:14 PM INDICATION: Patient age:Female; 82 years old; Reason for study: R07.9 CHEST PAIN; COMPARISON: Same day chest radiograph TECHNIQUE: Frontal and oblique views of the right ribs with frontal chest radiograph. FINDINGS: Costochondral calcifications limit evaluation. The ribs have a normal appearance. No evide nce of fracture. Overall, the lungs are clear. The cardiac silhouette is normal in size. The remain ing osseous structures are intact. IMPRESSION: Costochondral calcifications limit evaluation somewhat. No displaced rib fracture visualized. No acut e osseous pathology.
== END | disposition home or self-care (01) ==
LOC: RADXRMAIN 14:34
PROVIDERS: ATTEND Family Medicine
DX: J44.9 Chronic obstructive pulmonary disease, unspecified (principal)
CPT/HCPCS: 71046

== ENCOUNTER → 2023-01-19 | Outpatient (CLI) | payer MEDICARE, BC ==
[2023-01-19 17:42] LABS: African American GFR (CKD) 84 (>60 ml/min/1.73 sqM); Blood Urea Nitrogen 18 mg/dL (7-17); Non-African American GFR(CKD) 73 (>60 ml/min/1.73 sqM)
--- NOTE | 2023-01-19 21:05 | CT ---
EXAMINATION TYPE: CT abdomen pelvis w con CT DLP: 486.7 mGycm, Automated exposure control for dose reduction was used. DATE OF EXAM: 01/19/2023 6:56 PM COMPARISON: CT abdomen pelvis most recent from 04/26/2021 CLINICAL INDICATION:Female, 82 years old with history of K57.92 DIVERTICULITIS; Epigastric pain that radiates towards back x 1 month TECHNIQUE: Axial CT of the ;CT abdomen pelvis w con;Sagittal and coronal reformats were created on a separate workstation. Contrast used:100 cc mL of Isovue 300 with IV Contrast, (none if empty) Oral contrast used: with Oral Contrast (none if empty) FINDINGS: LOWER CHEST: Unremarkable ABDOMEN LIVER: Unremarkable GALLBLADDER AND BILE DUCTS: The gallbladder surgically absent. PANCREAS: Unremarkable. SPLEEN: Unremarkable. ADRENAL GLANDS: Unremarkable. KIDNEYS AND URETERS: No evidence of hydronephrosis or renal calculus. The ureters are unremarkable. Bilateral renal cysts. Left superior pole renal cyst may have thin peripheral on the upper aspect. PELVIS BLADDER: Unremarkable REPRODUCTIVE: Unremarkable. ABDOMEN & PELVIS STOMACH AND BOWEL: No evidence of bowel obstruction. Moderate amount stool throughout the colon there is visualization of the cecum within the abdomen. Scattered colonic diverticula are present. PERITONEUM/RETROPERITONEUM: No evidence of pneumoperitoneum or free fluid. VASCULATURE: No evidence of aortic aneurysm. MUSCULOSKELETAL: No acute osseous abnormalities LYMPH NODES: No gross evidence for lymphadenopathy. SOFT TISSUE/ABDOMINAL WALL: Unremarkable IMPRESSION: 1. No evidence for acute intraluminal process to explain patient's pain. Is no evidence for hiatal h ernia or evidence for pancreatitis. 2. Moderate stool throughout the colon. 3. Bosniak type I and type II cysts bilaterally.
== END | disposition home or self-care (01) ==
LOC: RADCTMAIN 17:05
PROVIDERS: ATTEND Family Medicine
DX: K57.92 Diverticulitis of intestine, part unspecified, without perforation or abscess without bleeding (principal); N28.1 Cyst of kidney, acquired
CPT/HCPCS: 82565; 84520; 74177; 36415; Q9967

== ENCOUNTER → 2023-06-30 | Outpatient (CLI) | payer MEDICARE, BC ==
--- NOTE | 2023-06-30 15:59 | CT ---
EXAMINATION TYPE: CT chest wo con DATE OF EXAM: 06/30/2023 COMPARISON: None HISTORY: cough/weight loss CT DLP: 263.9 mGycm. Automated Exposure Control for Dose Reduction was Utilized. TECHNIQUE: CT scan of the thorax is performed without IV contrast. FINDINGS: There is no suspicious lung mass or nodule. There are a few scattered micronodules. There is no abnormal airspace/consolidated density or abnormal interstitial density. There is no david bronchial cuffing or bronchiectasis. There is no pleural effusion, pleural thickening or pneumothorax. There is mild aneurysmal dilatation of the ascending thoracic aorta which measures roughly 4 cm. Ther e is no mediastinal, hilar or axillary adenopathy. Limited scanning through the upper abdomen reveals no gross abnormality. No focal osseous lesions are seen. IMPRESSION: 1. No acute cardiopulmonary disease. 2. No evidence of interstitial lung disease. 3. 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
== END | disposition home or self-care (01) ==
LOC: RADCTMAIN 14:49
PROVIDERS: ATTEND Family Medicine
DX: I71.21 Aneurysm of the ascending aorta, without rupture (principal); R63.4 Abnormal weight loss
CPT/HCPCS: 71250

== ENCOUNTER → 2023-09-13 | Outpatient (CLI) | payer MEDICARE, BC ==
[2023-09-13 14:12] LABS: African American GFR (CKD) >90 (>60 ml/min/1.73 sqM); Blood Urea Nitrogen 22 mg/dL (7-17); Non-African American GFR(CKD) 83 (>60 ml/min/1.73 sqM)
--- NOTE | 2023-09-13 21:06 | CT ---
EXAMINATION TYPE: CT abdomen wo/w con CT DLP: 383.4 mGycm, Automated exposure control for dose reduction was used. DATE OF EXAM: 09/13/2023 2:45 PM COMPARISON: CT abdomen pelvis most recent from 01/19/2023 CLINICAL INDICATION:Female, 83 years old with history of N28.1 renal cyst; Renal cyst. Prior in PACS TECHNIQUE: Axial CT abdomen wo/w con;Sagittal and coronal reformats were created on a separate works tation. Contrast used:100ml mL of Isovue 300 with IV Contrast, (none if empty) Oral contrast used: with Oral Contrast (none if empty) FINDINGS: LOWER CHEST: Unremarkable ABDOMEN LIVER: Unremarkable GALLBLADDER AND BILE DUCTS: Gallbladder is absent. PANCREAS: Unremarkable. SPLEEN: Unremarkable. ADRENAL GLANDS: Unremarkable. KIDNEYS AND URETERS: No evidence of hydronephrosis. There is 2 mm nonobstructing left renal calculus and 3 mm right nonobstructing calculus.. The ureters are unremarkable. Scattered bilateral renal cyst s which do not definitely demonstrate postcontrast enhancement. Left upper pole renal cyst with high density peripherally possibly calcification Left measuring 23 mm. Other simple simple appearing renal cysts including left 25 mm and 15 Hounsfield units. Right simple appearing cyst measuring 27 mm and 25 Hounsfield units Right 22 mm and 32 Hounsfield units. No solid enhancing masses definitively visualized. ABDOMEN & PELVIS STOMACH AND BOWEL: No evidence of bowel obstruction. PERITONEUM/RETROPERITONEUM: No evidence of pneumoperitoneum or free fluid. VASCULATURE: No evidence of aortic aneurysm. MUSCULOSKELETAL: No acute osseous abnormalities LYMPH NODES: No gross evidence for lymphadenopathy. SOFT TISSUE/ABDOMINAL WALL: Unremarkable IMPRESSION: 1. Stable bilateral Bosniak type I and type II renal cysts, no solid enhancing masses visualized. 2. Bilateral nonobstructing renal calculi.
== END | disposition home or self-care (01) ==
LOC: RADCTMAIN 13:24
PROVIDERS: ATTEND Urology
DX: N28.1 Cyst of kidney, acquired (principal); N20.0 Calculus of kidney
CPT/HCPCS: 82565; 84520; 74170; 36415; Q9967